=== PATIENT | female | born 1955 | race Caucasian/White ===

== ENCOUNTER 2016-10-18 12:16 | Emergency (ER) | payer MEDICARE, MEDICAID ==
[2016-10-18] MEDS ORDERED: NS 0.9% 1000 ML* 1,000 ML IV SCH (13:30)
[2016-10-18 13:38] LABS: Hematocrit 38 % (35-47); Hemoglobin 12.4 g/dl (12.0-16.0); Mean Corpuscular HGB Conc 33 g/dl (31-36); Mean Corpuscular Hemoglobin 29 pg (27-31); Mean Corpuscular Volume 88 fL (80-97); Mean Platelet Volume 8 um3 (7.4-10.4); Red Blood Count 4.29 10^6/ul (4.0-5.4); Red Cell Distribution Width 16 % (10.5-15); White Blood Count 11.2 10^3/ul (3.5-10.8)
[2016-10-18 13:50] LABS: Albumin 3.5 g/dL (3.2-5.2); BUN/Creatinine Ratio 24.1 (8-20); C Reactive Protein 4.53 mg/L (< 5.00); Calcium 8.9 mg/dL (8.6-10.3); EGFR African American 94.5 (>60); EGFR Non-African American 73.5 (>60); Globulin 3.4 g/dL (2-4); Magnesium 1.8 mg/dL (1.9-2.7); Potassium 3.8 mmol/L (3.5-5.0); Total Bilirubin 0.3 mg/dL (0.2-1.0); Total Protein 6.9 g/dL (6.4-8.9)
[2016-10-18 14:04] LABS: TSH (Thyroid Stimulating Horm) 0.33 mcIU/mL (0.34-5.60)
--- NOTE | 2016-10-18 14:06 | RAD ---
HISTORY: Epigastric pain COMPARISONS: May 09, 2014 VIEWS:1: Single frontal portable view of the chest at 1:35 PM FINDINGS: LINES AND TUBES: None. CARDIOMEDIASTINAL SILHOUETTE: The cardiomediastinal silhouette is normal for portable technique. PLEURA: The costophrenic angles are sharp. No pleural abnormalities are noted. LUNG PARENCHYMA: There is alveolar opacification of the right lung apex. ABDOMEN: The upper abdomen is clear. There is no subphrenic gas. BONES AND SOFT TISSUES: No bone or soft tissue abnormalities are noted. IMPRESSION: RIGHT UPPER LOBE CONSOLIDATIVE CHANGES. RECOMMEND FOLLOW-UP UNTIL RESOLUTION TO EXCLUDE UNDERLYING PULMONARY PARENCHYMAL PATHOLOGY. IF THE CLINICAL PRESENTATION IS NOT CONSISTENT WITH PNEUMONIA, CONSIDER FURTHER EVALUATION WITH CROSS-SECTIONAL IMAGING OF THE CHEST
[2016-10-18 14:36] LABS: Urine Bacteria Absent (Absent); Urine Bilirubin Negative (Negative); Urine Glucose 3+(>=500 mg/dL) (Negative); Urine Nitrite Negative (Negative)
[2016-10-18] MEDS ORDERED: Famotidine TAB* 20 MG PO ONE (15:07)
[2016-10-18] MEDS ORDERED: Lidocaine 2% VISCOUS* 15 ML UDC ONE (15:13)
--- NOTE | 2016-10-18 15:18 | ED ---
Fanta Aaron Anna, scribed for Alber Theodore MD on 10/18/16 at 1402 . HPI Chest Pain - HPI Summary HPI Summary: Patient is a 61 y/o female coming to [facility] presenting with the sudden onset of intermittent, mid-sternal pressure that began at 1045 this morning. At the onset of the pain, she was not exerting herself. The pain lasted for seconds at a time. At its worst, the pain as 8/10. She additionally had SOB and felt a sharp pain in her right arm for a few seconds. The pain was spontaneously resolved and is not currently present. Denies abd pain, nausea, diaphoresis, leg pain. She was given NTG [employer] in the ambulance, which seemed to alleviate the symptoms at first, though they returned while still in the ambulance. Nothing exacerbates the symptoms. She has had a cough recently. She has a mass in her lung with no evidence of CA per a recent biopsy. She had similar pain a while ago and was given a GI cocktail. She had a stress test more than a year ago with no unusual findings. She denies a history of HLD, HTN. She takes Sporeva, Methamizole, Mylanta, and Lorazepam. She started taking a steroid last night per her oncologist. Her history is significant for lung CA, GERD, COPD. Denies Hx cholecystectomy. She unintentionally lost 12 pounds in the last month. Patient medications have been reviewed this visit. - History of Current Complaint Chief Complaint: EDChestPainROMI Time Seen by Provider: 10/18/16 13:34 Hx Obtained From: Patient Onset/Duration: Resolved Timing: Lasting Seconds Pain Intensity: 8 Pain Scale Used: 0-10 Numeric Chest Pain Location: Mid Sternal Character: Pressure/Squeezing Aggravating Factor(s): Nothing Alleviating Factor(s): NTG 123 - Allergy/Home Medications Allergies/Adverse Reactions: Allergies Allergy/AdvReac Type Severity Reaction Status Date / Time Omeprazole Allergy Unknown Unknown Verified 09/23/15 11:13 Reaction Details Moxifloxacin Allergy Unknown Verified 09/23/15 11:13 Reaction Details SEAFOOD CHOWDER Allergy anaphylaxis Uncoded 09/23/15 11:13 STRAWBERRY SHORTCAKE Allergy anaphylaxis Uncoded 09/23/15 11:13 Home Medications: Home Medications Albuterol HFA INHALER* [Ventolin HFA Inhaler*] 2 puff INH Q4H PRN 10/18/16 [ History Confirmed 10/18/16] Calcium Carbonate-Vitamin D [Calcium 600 + D] 2 tab PO DAILY 10/18/16 [History Confirmed 10/18/16] Naproxen TAB* [Naprosyn 250 mg TAB*] 500 mg PO BID WITH MEALS 10/18/16 [History Confirmed 10/18/16] Tiotropium CAP.INH* [Spiriva CAP.INH*] 1 cap.inh INH DAILY 10/18/16 [History Confirmed 10/18/16] PMH/Surg Hx/FS Hx/Imm Hx Endocrine/Hematology History: Reports: Hx Thyroid Disease - hyperthyroid issues , per pt Cardiovascular History: Reports: Other Cardiovascular Problems/Disorders - rad & chemo for lung CA 2006 Respiratory History: Reports: Hx Chronic Obstructive Pulmonary Disease (COPD), Other Respiratory Problems/Disorders - HX LUNG CX 2006 GI History: Reports: Hx Gastroesophageal Reflux Disease Psychiatric History: Reports: Hx Panic Disorder - Cancer History Cancer Type, Location and Year: lung Hx Chemotherapy: Yes - Surgical History Surgery Procedure, Year, and Place: lung biopsy. attempted lung surgery - to remove tumors/part of lung, but they were unable to remove them d/t the size Infectious Disease History: No Infectious Disease History: Denies: History Other Infectious Disease, Traveled Outside the [place] in Last 30 Days - Family History Known Family History: Positive: Other - hyperthyroidism - Social History Alcohol Use: Rare Substance Use Type: Reports: None Smoking Status (MU): Light Every Day Tobacco Smoker Type: Cigarettes Review of Systems Positive: Chest Pain Positive: Shortness Of Breath Positive: Arthralgia All Other Systems Reviewed And Are Negative: Yes Physical Exam Triage Information Reviewed: Yes Vital Signs On Initial Exam: Initial Vitals Temp Pulse Resp BP Pulse Ox 97 F 53 16 118/70 98 10/18/16 12:41 10/18/16 12:41 10/18/16 12:41 10/18/16 12:41 10/18/16 12:41 Vital Signs Reviewed: Yes Appearance: Positive: Well-Appearing, No Pain Distress Skin: Positive: Warm, Skin Color Reflects Adequate Perfusion, Dry Head/Face: Positive: Normal Head/Face Inspection Eyes: Positive: EOMI, MICHAEL ENT: Positive: Normal ENT inspection Neck: Positive: Supple, Nontender Respiratory/Lung Sounds: Positive: Clear to Auscultation, Breath Sounds Present Cardiovascular: Positive: RRR Abdomen Description: Positive: Nontender, Soft Bowel Sounds: Positive: Present Musculoskeletal: Positive: Normal, Strength/ROM Intact Neurological: Positive: Normal, Sensory/Motor Intact, Alert, Oriented to Person Place, Time Psychiatric: Positive: Anxious - [place] Coma Scale Coma Scale Total: 15 Diagnostics - Vital Signs Vital Signs Temp Pulse Resp BP Pulse Ox 10/18/16 12:48 98 F 57 16 118/70 99 10/18/16 12:41 97 F 53 16 118/70 98 - Laboratory Lab Results: Lab Results 10/18/16 10/18/16 10/18/16 Range/Units 12:37 12:37 12:37 WBC 11.2 H (3.5-10.8) 10^3/ul RBC 4.29 (4.0-5.4) 10^6/ul Hgb 12.4 (12.0-16.0) g/dl Hct 38 (35-47) % MCV 88 (80-97) fL MCH 29 (27-31) pg MCHC 33 (31-36) g/dl RDW 16 H (10.5-15) % Plt Count 379 (150-450) 10^3/ul MPV 8 (7.4-10.4) um3 Neut % (Auto) 88.2 H (38-83) % Lymph % (Auto) 7.9 L (25-47) % Bacon % (Auto) 3.5 (1-9) % Eos % (Auto) 0 (0-6) % Baso % (Auto) 0.4 (0-2) % Absolute Neuts (auto) 9.9 H (1.5-7.7) 10^3/ul Absolute Lymphs (auto) 0.9 L (1.0-4.8) 10^3/ul Absolute Monos (auto) 0.4 (0-0.8) 10^3/ul Absolute Eos (auto) 0 (0-0.6) 10^3/ul Absolute Basos (auto) 0 (0-0.2) 10^3/ul Absolute Nucleated RBC 0.01 10^3/ul Nucleated RBC % 0.1 INR (Anticoag Therapy) 0.89 (0.89-1.11) APTT 27.4 (26.0-36.3) seconds Sodium 133 (133-145) mmol/L Potassium 3.8 (3.5-5.0) mmol/L Chloride 107 (101-111) mmol/L Carbon Dioxide 20 L (22-32) mmol/L Anion Gap 6 (2-11) mmol/L BUN 19 (6-24) mg/dL Creatinine 0.79 (0.51-0.95) mg/dL Est GFR ( Amer) 94.5 (>60) Est GFR (Non-Af Amer) 73.5 (>60) BUN/Creatinine Ratio 24.1 H (8-20) Glucose 245 H (70-100) mg/dL Lactic Acid (0.5-2.0) mmol/L Calcium 8.9 (8.6-10.3) mg/dL Magnesium 1.8 L (1.9-2.7) mg/dL Total Bilirubin 0.30 (0.2-1.0) mg/dL AST 10 L (13-39) U/L ALT 7 (7-52) U/L Alkaline Phosphatase 78 (34-104) U/L Total Creatine Kinase 33 (10-223) U/L CK-MB (CK-2) 1.2 (0.6-6.3) ng/mL Troponin I 0.00 (<0.04) ng/mL C-Reactive Protein 4.53 (< 5.00) mg/L B-Natriuretic Peptide ( - 100) pg/mL Total Protein 6.9 (6.4-8.9) g/dL Albumin 3.5 (3.2-5.2) g/dL Globulin 3.4 (2-4) g/dL Albumin/Globulin Ratio 1.0 (1-3) Lipase 12 (11.0-82.0) U/L TSH Pending 10/18/16 10/18/16 Range/Units 12:37 12:37 WBC (3.5-10.8) 10^3/ul RBC (4.0-5.4) 10^6/ul Hgb (12.0-16.0) g/dl Hct (35-47) % MCV (80-97) fL MCH (27-31) pg MCHC (31-36) g/dl RDW (10.5-15) % Plt Count (150-450) 10^3/ul MPV (7.4-10.4) um3 Neut % (Auto) (38-83) % Lymph % (Auto) (25-47) % Bacon % (Auto) (1-9) % Eos % (Auto) (0-6) % Baso % (Auto) (0-2) % Absolute Neuts (auto) (1.5-7.7) 10^3/ul Absolute Lymphs (auto) (1.0-4.8) 10^3/ul Absolute Monos (auto) (0-0.8) 10^3/ul Absolute Eos (auto) (0-0.6) 10^3/ul Absolute Basos (auto) (0-0.2) 10^3/ul Absolute Nucleated RBC 10^3/ul Nucleated RBC % INR (Anticoag Therapy) (0.89-1.11) APTT (26.0-36.3) seconds Sodium (133-145) mmol/L Potassium (3.5-5.0) mmol/L Chloride (101-111) mmol/L Carbon Dioxide (22-32) mmol/L Anion Gap (2-11) mmol/L BUN (6-24) mg/dL Creatinine (0.51-0.95) mg/dL Est GFR ( Amer) (>60) Est GFR (Non-Af Amer) (>60) BUN/Creatinine Ratio (8-20) Glucose (70-100) mg/dL Lactic Acid 1.8 (0.5-2.0) mmol/L Calcium (8.6-10.3) mg/dL Magnesium (1.9-2.7) mg/dL Total Bilirubin (0.2-1.0) mg/dL AST (13-39) U/L ALT (7-52) U/L Alkaline Phosphatase (34-104) U/L Total Creatine Kinase (10-223) U/L CK-MB (CK-2) (0.6-6.3) ng/mL Troponin I (<0.04) ng/mL C-Reactive Protein (< 5.00) mg/L B-Natriuretic Peptide 31 ( - 100) pg/mL Total Protein (6.4-8.9) g/dL Albumin (3.2-5.2) g/dL Globulin (2-4) g/dL Albumin/Globulin Ratio (1-3) Lipase (11.0-82.0) U/L TSH Result Diagrams: 10/18/16 12:37 10/18/16 12:37 Lab Statement: Any lab studies that have been ordered have been reviewed, and results considered in the medical decision making process. - Radiology CXR Xray Interpretation: Positive (See Comments) Radiology Interpretation Completed By: Radiologist - IMPRESSION: RIGHT UPPER LOBE CONSOLIDATIVE CHANGES. RECOMMEND FOLLOW-UP UNTIL RESOLUTION TO EXCLUDE UNDERLYING PULMONARY PARENCHYMAL PATHOLOGY. IF THE CLINICAL PRESENTATION IS NOT CONSISTENT WITH PNEUMONIA, CONSIDER FURTHER EVALUATION WITH CROSS-SECTIONAL IMAGING OF THE CHEST - EKG 1324 Cardiac Rate: Bradycardia - 58 bpm EKG Rhythm: Sinus Bradycardia ST Segment: Normal Ectopy: None Chest Pain Course/Dx - Course Course Of Treatment: NO CRITICAL CARE TIME Assessment/Plan: ADMIT HOSPITALIST STABLE - Diagnoses Provider Diagnoses: CHEST PAIN - Provider Notifications Discussed Care Of Patient With: Mohan Andrade (Hospitalist PA) at 1411. Dr. Sheikh (Hospitalist) at 1416. Agrees to accept patient for admission. Discharge - Discharge Plan Condition: Stable Disposition: ADMITTED TO [facility] Prescriptions: Famotidine [Pepcid] 20 mg PO BID #60 tab Referrals: Yassine Shirley MD [Primary Care Provider] - The documentation as recorded by the Fanta macias Anna accurately reflects the service I personally performed and the decisions made by me, Alber Theodore MD.
--- NOTE | 2016-10-18 15:20 | CONSULT ---
Subjective Date of Service: 10/18/16 Interval History: Allergies Allergy/AdvReac Type Severity Reaction Status Date / Time Omeprazole Allergy Unknown Unknown Verified 09/23/15 11:13 Reaction Details Moxifloxacin Allergy Unknown Verified 09/23/15 11:13 Reaction Details SEAFOOD CHOWDER Allergy anaphylaxis Uncoded 09/23/15 11:13 STRAWBERRY SHORTCAKE Allergy anaphylaxis Uncoded 09/23/15 11:13 Omeprazole: high BP Moxifloxacin: high heart rate Buproprion: suicidal Home Medications Medication Instructions Recorded Confirmed Type Al Hydrox/Mg Hydrox/Simet* 15 ml PO Q4HR PRN 04/25/12 10/18/16 History [Mylanta*] LORazepam TAB(*) [Ativan TAB(*)] 0.5 - 1 mg PO BEDTIME PRN 04/25/12 10/18/16 History Methimazole TAB* [Tapazole TAB*] 5 mg PO TID 04/25/12 10/18/16 History Albuterol HFA INHALER* [Ventolin 2 puff INH Q4H PRN 10/18/16 10/18/16 History HFA Inhaler*] Calcium Carbonate-Vitamin D 2 tab PO DAILY 10/18/16 10/18/16 History [Calcium 600 + D] Famotidine [Pepcid] 20 mg PO BID #60 tab 10/18/16 Rx Naproxen TAB* [Naprosyn 250 mg 500 mg PO BID WITH MEALS 10/18/16 10/18/16 History TAB*] Tiotropium CAP.INH* [Spiriva 1 cap.inh INH DAILY 10/18/16 10/18/16 History CAP.INH*] HPI: The patient was in her usual state of health until about a month ago. She developed gastroenteritis with diarrhea. This eventually resolved but she lost 12 pounds. She was found to have a new right lung mass and had a biopsy about a week ago. The mass was active on PET scan, buth the bx was negative for malignancy. She was prescribed a tapering pack of steroid pills whcih she started last night. She did not take any medication yet today. She developed sharp epigastric pain about 10 AM today. She has had several attacks lasting up to 10 minutes today. She states she has GERD and requests a GI cocktail. Family History: Findings - Melanoma, heart disease Social History: Findings - , lives alone. 4 children, 1 of DKA. Smoker. No alcohol abuse SDM is daughter Lizeth Thompson. Past Medical History: Findings - Lung ca finished tx with RT/chemo 2007. Exploratory R thoracotomy, unresectable tumors. BTL. Port insertion and removal. Review of Systems - Measurements Intake and Output: Intake and Output Last 24 Hours 10/16/16 10/17/16 10/18/16 10/19/16 06:59 06:59 06:59 06:59 Weight 92 lb - Review of Systems Constitutional Symptoms: Positive: Weight Loss - 12 lbs in past month Dermatology: Positive: Normal HEENT: Positive: Normal Eyes: Positive: Normal Thyroid: Positive: Normal Pulmonary: Positive: Cough, Sputum - Increased cough past week, yellow sputum Cardiology: Positive: Normal Gastroenterology: Positive: Abdominal Pain - pain is epigastric Genital - Urinary: Positive: Normal Musculoskeletal: Negative: Joint Pain, Joint Stiffness, Arthritis, Osteoporosis, Low Back Pain , Sciatica, Joint Deformities, Kyphoscoliosis, Other Endocrinology: Positive: Normal Hematologic/Lymphatic: Negative: Anemia, Easy Brusing, Hx Leukemia, Hx Lymphoma, Use of Anticoagulant, Use of Antiplatelet Drugs, Other Neurology: Positive: Normal Psychiatry: Positive: Normal Allergic/Immunologic: Negative: Hx Anaphylaxis, Hx Angioedema, Hx Environmental, Hx Seasonal, Athsma, Hx HIV, Immunocompromise, Swollen Glands LymphNodes, Other Objective Active Medications: Al Hydrox/Mg Hydrox/Simethicone (Maalox Plus*) 30 ml PO ONCE ONE Stop: 10/18/16 15:31 Sodium Chloride (Ns 0.9% 1000 Ml*) 1,000 mls @ 150 mls/hr IV PER RATE HUDSON Last Admin: 10/18/16 13:43 Dose: 150 mls/hr Lidocaine (Xylocaine 2% Viscous*) 15 ml PO ONCE ONE Stop: 10/18/16 15:31 Vital Signs 10/18/16 10/18/16 10/18/16 12:29 12:32 12:41 Temperature 97 F Pulse Rate 69 63 53 Respiratory 18 20 16 Rate Blood Pressure 118/70 118/70 (mmHg) O2 Sat by Pulse 97 98 98 Oximetry 10/18/16 10/18/16 10/18/16 12:48 13:00 13:30 Temperature 98 F Pulse Rate 57 58 Respiratory 16 Rate Blood Pressure 118/70 125/63 108/58 (mmHg) O2 Sat by Pulse 99 99 Oximetry 10/18/16 10/18/16 14:08 14:52 Temperature Pulse Rate 61 72 Respiratory 16 Rate Blood Pressure 111/65 (mmHg) O2 Sat by Pulse 95 Oximetry Oxygen Devices in Use Now: None Appearance: Alert, sitting on the edge of the bed. Sl anxious, otherwise looks comfortable. Eyes: No Scleral Icterus Ears/Nose/Mouth/Throat: Clear Oropharnyx, Mucous Membranes Moist Neck: NL Appearance and Movements; NL JVP, No Thyroid Enlargement, Masses Respiratory: Symmetrical Chest Expansion and Respiratory Effort, Clear to Auscultation, Clear to Percussion Cardiovascular: NL Sounds; No Murmurs; No JVD, RRR, No Edema, - Abdominal: - - Soft, tender in epigastrium, pressure there reproduces her pain. Nl BS, no mass Extremities: No Edema, No Clubbing, Cyanosis, - Skin: No Rash or Ulcers, No Nodules or Sclerosis, - Neurological: Alert and Oriented x 3, NL Sensation Result Diagrams: 10/18/16 12:37 10/18/16 12:37 Additional Lab and Data: Lab Results 10/18/16 10/18/16 10/18/16 Range/Units 12:37 12:37 12:37 WBC 11.2 H (3.5-10.8) 10^3/ul RBC 4.29 (4.0-5.4) 10^6/ul Hgb 12.4 (12.0-16.0) g/dl Hct 38 (35-47) % MCV 88 (80-97) fL MCH 29 (27-31) pg MCHC 33 (31-36) g/dl RDW 16 H (10.5-15) % Plt Count 379 (150-450) 10^3/ul MPV 8 (7.4-10.4) um3 Neut % (Auto) 88.2 H (38-83) % Lymph % (Auto) 7.9 L (25-47) % Maverick % (Auto) 3.5 (1-9) % Eos % (Auto) 0 (0-6) % Baso % (Auto) 0.4 (0-2) % Absolute Neuts (auto) 9.9 H (1.5-7.7) 10^3/ul Absolute Lymphs (auto) 0.9 L (1.0-4.8) 10^3/ul Absolute Monos (auto) 0.4 (0-0.8) 10^3/ul Absolute Eos (auto) 0 (0-0.6) 10^3/ul Absolute Basos (auto) 0 (0-0.2) 10^3/ul Absolute Nucleated RBC 0.01 10^3/ul Nucleated RBC % 0.1 INR (Anticoag Therapy) 0.89 (0.89-1.11) APTT 27.4 (26.0-36.3) seconds Sodium 133 (133-145) mmol/L Potassium 3.8 (3.5-5.0) mmol/L Chloride 107 (101-111) mmol/L Carbon Dioxide 20 L (22-32) mmol/L Anion Gap 6 (2-11) mmol/L BUN 19 (6-24) mg/dL Creatinine 0.79 (0.51-0.95) mg/dL Est GFR ( Amer) 94.5 (>60) Est GFR (Non-Af Amer) 73.5 (>60) BUN/Creatinine Ratio 24.1 H (8-20) Glucose 245 H (70-100) mg/dL Lactic Acid (0.5-2.0) mmol/L Calcium 8.9 (8.6-10.3) mg/dL Magnesium 1.8 L (1.9-2.7) mg/dL Total Bilirubin 0.30 (0.2-1.0) mg/dL AST 10 L (13-39) U/L ALT 7 (7-52) U/L Alkaline Phosphatase 78 (34-104) U/L Total Creatine Kinase 33 (10-223) U/L CK-MB (CK-2) 1.2 (0.6-6.3) ng/mL Troponin I 0.00 (<0.04) ng/mL C-Reactive Protein 4.53 (< 5.00) mg/L B-Natriuretic Peptide ( - 100) pg/mL Total Protein 6.9 (6.4-8.9) g/dL Albumin 3.5 (3.2-5.2) g/dL Globulin 3.4 (2-4) g/dL Albumin/Globulin Ratio 1.0 (1-3) Lipase 12 (11.0-82.0) U/L TSH Pending 10/18/16 10/18/16 Range/Units 12:37 12:37 WBC (3.5-10.8) 10^3/ul RBC (4.0-5.4) 10^6/ul Hgb (12.0-16.0) g/dl Hct (35-47) % MCV (80-97) fL MCH (27-31) pg MCHC (31-36) g/dl RDW (10.5-15) % Plt Count (150-450) 10^3/ul MPV (7.4-10.4) um3 Neut % (Auto) (38-83) % Lymph % (Auto) (25-47) % Maverick % (Auto) (1-9) % Eos % (Auto) (0-6) % Baso % (Auto) (0-2) % Absolute Neuts (auto) (1.5-7.7) 10^3/ul Absolute Lymphs (auto) (1.0-4.8) 10^3/ul Absolute Monos (auto) (0-0.8) 10^3/ul Absolute Eos (auto) (0-0.6) 10^3/ul Absolute Basos (auto) (0-0.2) 10^3/ul Absolute Nucleated RBC 10^3/ul Nucleated RBC % INR (Anticoag Therapy) (0.89-1.11) APTT (26.0-36.3) seconds Sodium (133-145) mmol/L Potassium (3.5-5.0) mmol/L Chloride (101-111) mmol/L Carbon Dioxide (22-32) mmol/L Anion Gap (2-11) mmol/L BUN (6-24) mg/dL Creatinine (0.51-0.95) mg/dL Est GFR ( Amer) (>60) Est GFR (Non-Af Amer) (>60) BUN/Creatinine Ratio (8-20) Glucose (70-100) mg/dL Lactic Acid 1.8 (0.5-2.0) mmol/L Calcium (8.6-10.3) mg/dL Magnesium (1.9-2.7) mg/dL Total Bilirubin (0.2-1.0) mg/dL AST (13-39) U/L ALT (7-52) U/L Alkaline Phosphatase (34-104) U/L Total Creatine Kinase (10-223) U/L CK-MB (CK-2) (0.6-6.3) ng/mL Troponin I (<0.04) ng/mL C-Reactive Protein (< 5.00) mg/L B-Natriuretic Peptide 31 ( - 100) pg/mL Total Protein (6.4-8.9) g/dL Albumin (3.2-5.2) g/dL Globulin (2-4) g/dL Albumin/Globulin Ratio (1-3) Lipase (11.0-82.0) U/L TSH Assessment/Plan - Billing Plan By Medical Problem: 1. Epigastric pain. Clinically this is GI pain. Pt requests by name a GI cocktail. Maalox with lidocaine given, also 1 dose of famotidine 20 mg and rx for famotidine 20 mg bid transmitted. Second troponin will be checked before discharge. 2. Tobacco use. Pt advised to quit smoking and avoid second hand smoke. 3. Lung mass. Fup with her oncologist. Complete steroid as prescribed. 4. Hyperthyroidism. TSH sl low, may need re-eval of her endocrine tx. 5. COPD . Continue tiotropium.
[2016-10-18] MEDS ORDERED: Al Hydrox/Mg Hydrox/Simet LIQ* 30 ML UDC PO ONE (15:30)
[2016-10-18] MEDS ORDERED: Lidocaine 2% VISCOUS* 15 ML UDC PO ONE (15:30)
[2016-10-18 16:36] VITALS: BP 126/94
== END 2016-10-18 16:35 | disposition home or self-care (01) ==
LOC: ED 12:16 → MEDTELE 14:35 → UNDOADMOB 14:35 → ED 16:35
DX: R07.9 Chest pain, unspecified (principal); R06.02 Shortness of breath; M25.50 Pain in unspecified joint
CPT/HCPCS: 36415; 71010; 80053; 81003; 81015; 82550; 82553; 83605; 83690; 83735; 83880; 84443; 84484; 85025; 85610; 85730; 86140; 87086; 93005; 99284; A9270-GY

== ENCOUNTER → 2017-05-04 00:40 | Emergency (ER) | payer MEDICARE, MEDICAID ==
[2017-05-04 03:19] LABS: Hematocrit 45 % (35-47); Hemoglobin 15.3 g/dl (12.0-16.0); Mean Corpuscular HGB Conc 34 g/dl (31-36); Mean Corpuscular Hemoglobin 31 pg (27-31); Mean Corpuscular Volume 92 fL (80-97); Mean Platelet Volume 8 um3 (7.4-10.4); Red Blood Count 4.92 10^6/ul (4.0-5.4); Red Cell Distribution Width 14 % (10.5-15); White Blood Count 9.2 10^3/ul (3.5-10.8)
[2017-05-04 03:31] LABS: ALT 10 U/L (7-52); AST 16 U/L (13-39); Alkaline Phosphatase 90 U/L (34-104); Anion Gap 6 mmol/L (2-11); Blood Urea Nitrogen 19 mg/dL (6-24); CO2 Carbon Dioxide 23 mmol/L (22-32); Calcium 9.2 mg/dL (8.6-10.3); Chloride 106 mmol/L (101-111); EGFR African American 76.4 (>60); EGFR Non-African American 59.4 (>60); Globulin 2.9 g/dL (2-4); Glucose 115 mg/dL (70-100); Lipase 22 U/L (11.0-82.0); Magnesium 2.1 mg/dL (1.9-2.7); Potassium 3.8 mmol/L (3.5-5.0); Sodium 135 mmol/L (133-145); Total Protein 6.9 g/dL (6.4-8.9)
[2017-05-04 04:16] LABS: Troponin I 0.01 ng/mL (<0.04)
[2017-05-04 04:25] LABS: T4 7.64 mcg/mL (6.09-12.23)
[2017-05-04 06:14] VITALS: BP 92/55
[2017-05-04 06:56] LABS: Urine Bilirubin Negative (Negative); Urine Glucose Negative (Negative); Urine Nitrite Negative (Negative)
--- NOTE | 2017-05-04 07:27 | ED ---
Trudy Aaron Alfonso, scribed for Louie Herrera MD on 05/04/17 at 0203 . HPI Chest Pain - HPI Summary HPI Summary: This patient is a 61 year old F BIBA to [facility] with a chief complaint of chest pressure which began at rest at 2100. 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 The patient rates the pain 6/10 in severity. Symptoms aggravated by movement. Symptoms alleviated by nothing. Patient reports nausea, SOB, numbness tingling on left side of face (resolved), one palpitation my heart pushed out once but no pressure, left shoulder pain, loss of focus, and occipital headache (since yesterday). Patient denies vomiting and arm pain. - History of Current Complaint Chief Complaint: EDAbdPain Pain Intensity: 6 Pain Scale Used: 0-10 Numeric Character: Pressure/Squeezing Aggravating Factor(s): Movement Alleviating Factor(s): Nothing Associated Signs and Symptoms: Positive: Other: - nausea, SOB, numbness tingling on left side of face (resolved), one palpitation my heart pushed out once but no pressure, left shoulder pain, loss of focus, and occipital headache (since yesterday). Patient denies vomiting and arm pain. - Allergy/Home Medications Allergies/Adverse Reactions: Allergies Allergy/AdvReac Type Severity Reaction Status Date / Time Omeprazole Allergy Unknown Unknown Verified 05/04/17 00:43 Reaction Details Moxifloxacin Allergy Unknown Verified 05/04/17 00:43 Reaction Details SEAFOOD CHOWDER Allergy anaphylaxis Uncoded 05/04/17 00:43 STRAWBERRY SHORTCAKE Allergy anaphylaxis Uncoded 05/04/17 00:43 PMH/Surg Hx/FS Hx/Imm Hx Endocrine/Hematology History: Reports: Hx Thyroid Disease - hyperthyroid issues , per pt Cardiovascular History: Reports: Hx Myocardial Infarction, Other Cardiovascular Problems/Disorders - rad & chemo for lung CA 2006 Respiratory History: Reports: Hx Chronic Obstructive Pulmonary Disease (COPD), Other Respiratory Problems/Disorders - HX LUNG CX 2006 GI History: Reports: Hx Gastroesophageal Reflux Disease Musculoskeletal History: Denies: Hx Arthritis, Hx Osteoporosis Psychiatric History: Reports: Hx Panic Disorder - Cancer History Cancer Type, Location and Year: lung Hx Chemotherapy: Yes - last in august 2007 - Surgical History Surgery Procedure, Year, and Place: lung biopsy. attempted lung surgery - to remove tumors/part of lung, but they were unable to remove them d/t the size - Immunization History Date of Tetanus Vaccine: unk Date of Influenza Vaccine: none Infectious Disease History: No Infectious Disease History: Denies: History Other Infectious Disease, Traveled Outside the [place] in Last 30 Days - Family History Known Family History: Positive: Other - hyperthyroidism - Social History Alcohol Use: Occasionally Hx Substance Use: No Substance Use Type: Reports: None Hx Tobacco Use: Yes Smoking Status (MU): Heavy Every Day Tobacco Smoker Type: Cigarettes Review of Systems Positive: Chest Pain Positive: Shortness Of Breath Positive: Nausea Positive: Numbness - numbness tingling on left side of face (resolved) All Other Systems Reviewed And Are Negative: Yes Physical Exam - Summary Physical Exam Summary: Appearance: Well-appearing, Well-nourished Sin: Warm Eyes: Minimal scleral icterus, PERRL, EOMI ENT: Normal Neck: Supple, nontender Respiratory: Clear to auscultation Cardiovascular: Normal, Good pulses in all 4 extremities Abdomen: Soft, nontender Bowel: Present Musculoskeletal: Normal, Strength/ROM Intact, Normal movement of all extremity, Wadley negative, No pronator drift Neurological: Normal, A&Ox3, Cranial nerves II-XII intact. Psychiatric: Normal Triage Information Reviewed: Yes Vital Signs On Initial Exam: Initial Vitals Temp Pulse Resp BP Pulse Ox 98.4 F 66 16 112/64 95 05/04/17 00:41 05/04/17 00:41 05/04/17 00:41 05/04/17 00:41 05/04/17 00:41 Vital Signs Reviewed: Yes - Bala Coma Scale Coma Scale Total: 15 Diagnostics - Vital Signs Vital Signs Temp Pulse Resp BP Pulse Ox 05/04/17 00:41 98.4 F 66 16 112/64 95 - Laboratory Lab Results: Lab Results 05/04/17 05/04/17 05/04/17 Range/Units 03:00 03:00 03:00 WBC 9.2 (3.5-10.8) 10^3/ul RBC 4.92 (4.0-5.4) 10^6/ul Hgb 15.3 (12.0-16.0) g/dl Hct 45 (35-47) % MCV 92 (80-97) fL MCH 31 (27-31) pg MCHC 34 (31-36) g/dl RDW 14 (10.5-15) % Plt Count 311 (150-450) 10^3/ul MPV 8 (7.4-10.4) um3 Neut % (Auto) 66.9 (38-83) % Lymph % (Auto) 24.8 L (25-47) % [place] % (Auto) 6.3 (1-9) % Eos % (Auto) 1.1 (0-6) % Baso % (Auto) 0.9 (0-2) % Absolute Neuts (auto) 6.1 (1.5-7.7) 10^3/ul Absolute Lymphs (auto) 2.3 (1.0-4.8) 10^3/ul Absolute Monos (auto) 0.6 (0-0.8) 10^3/ul Absolute Eos (auto) 0.1 (0-0.6) 10^3/ul Absolute Basos (auto) 0.1 (0-0.2) 10^3/ul Absolute Nucleated RBC 0 10^3/ul Nucleated RBC % 0 INR (Anticoag Therapy) 0.78 L (0.89-1.11) APTT 30.2 (26.0-36.3) seconds Sodium 135 (133-145) mmol/L Potassium 3.8 (3.5-5.0) mmol/L Chloride 106 (101-111) mmol/L Carbon Dioxide 23 (22-32) mmol/L Anion Gap 6 (2-11) mmol/L BUN 19 (6-24) mg/dL Creatinine 0.95 (0.51-0.95) mg/dL Est GFR ( Amer) 76.4 (>60) Est GFR (Non-Af Amer) 59.4 (>60) BUN/Creatinine Ratio 20.0 (8-20) Glucose 115 H (70-100) mg/dL Calcium 9.2 (8.6-10.3) mg/dL Magnesium 2.1 (1.9-2.7) mg/dL Total Bilirubin 0.30 (0.2-1.0) mg/dL Direct Bilirubin 0.00 L (0.03-0.18) mg/dL Indirect Bilirubin Pier Worker AST 16 (13-39) U/L ALT 10 (7-52) U/L Alkaline Phosphatase 90 (34-104) U/L Troponin I 0.01 (<0.04) ng/mL Total Protein 6.9 (6.4-8.9) g/dL Albumin 4.0 (3.2-5.2) g/dL Globulin 2.9 (2-4) g/dL Albumin/Globulin Ratio 1.4 (1-3) Lipase 22 (11.0-82.0) U/L TSH 1.30 (0.34-5.60) mcIU/mL Thyroxine (T4) 7.64 (6.09-12.23) mcg/mL Urine Color Urine Appearance Urine pH (5-9) Ur Specific G[place]ad (1.010-1.030) Urine Protein (Negative) Urine Ketones (Negative) Urine Blood (Negative) Urine Nitrate (Negative) Urine Bilirubin (Negative) Urine Urobilinogen (Negative) Ur Leukocyte Esterase (Negative) Urine Glucose (Negative) Urine Ascorbic Acid (Negative) 05/04/17 05/04/17 Range/Units 05:55 06:25 WBC (3.5-10.8) 10^3/ul RBC (4.0-5.4) 10^6/ul Hgb (12.0-16.0) g/dl Hct (35-47) % MCV (80-97) fL MCH (27-31) pg MCHC (31-36) g/dl RDW (10.5-15) % Plt Count (150-450) 10^3/ul MPV (7.4-10.4) um3 Neut % (Auto) (38-83) % Lymph % (Auto) (25-47) % [place] % (Auto) (1-9) % Eos % (Auto) (0-6) % Baso % (Auto) (0-2) % Absolute Neuts (auto) (1.5-7.7) 10^3/ul Absolute Lymphs (auto) (1.0-4.8) 10^3/ul Absolute Monos (auto) (0-0.8) 10^3/ul Absolute Eos (auto) (0-0.6) 10^3/ul Absolute Basos (auto) (0-0.2) 10^3/ul Absolute Nucleated RBC 10^3/ul Nucleated RBC % INR (Anticoag Therapy) (0.89-1.11) APTT (26.0-36.3) seconds Sodium (133-145) mmol/L Potassium (3.5-5.0) mmol/L Chloride (101-111) mmol/L Carbon Dioxide (22-32) mmol/L Anion Gap (2-11) mmol/L BUN (6-24) mg/dL Creatinine (0.51-0.95) mg/dL Est GFR ( Amer) (>60) Est GFR (Non-Af Amer) (>60) BUN/Creatinine Ratio (8-20) Glucose (70-100) mg/dL Calcium (8.6-10.3) mg/dL Magnesium (1.9-2.7) mg/dL Total Bilirubin (0.2-1.0) mg/dL Direct Bilirubin (0.03-0.18) mg/dL Indirect Bilirubin AST (13-39) U/L ALT (7-52) U/L Alkaline Phosphatase (34-104) U/L Troponin I 0.01 (<0.04) ng/mL Total Protein (6.4-8.9) g/dL Albumin (3.2-5.2) g/dL Globulin (2-4) g/dL Albumin/Globulin Ratio (1-3) Lipase (11.0-82.0) U/L TSH (0.34-5.60) mcIU/mL Thyroxine (T4) (6.09-12.23) mcg/mL Urine Color Yellow Urine Appearance Clear Urine pH 6.0 (5-9) Ur Specific G[place] 1.018 (1.010-1.030) Urine Protein Negative (Negative) Urine Ketones Negative (Negative) Urine Blood Negative (Negative) Urine Nitrate Negative (Negative) Urine Bilirubin Negative (Negative) Urine Urobilinogen Negative (Negative) Ur Leukocyte Esterase Negative (Negative) Urine Glucose Negative (Negative) Urine Ascorbic Acid * H (Negative) Result Diagrams: 05/04/17 03:00 05/04/17 03:00 Lab Statement: Any lab studies that have been ordered have been reviewed, and results considered in the medical decision making process. - Radiology CXR Radiology Interpretation Completed By: ED Physician - Bilateral haziness of bases. Flattening of the diaphragm. No obvious acute consolidation., Radiologist - Pending official interpretation from radiologist. See meditech. - CT Brain CT Interpretation Completed By: Radiologist - No acute intracranial hemorrhage mass effect or midline shift. No evidence of large territory of subacute stroke. Cannot exclude a small acute stroke. If there is clinical concern for a small acute stroke then followup evaluation with MRI of the bran may be needed. ED physician has reviewed this radiology report and agrees. - EKG 0617 Cardiac Rate: Bradycardia EKG Rhythm: Sinus Bradycardia - BPM 55 EKG Interpretation: NAC Re-Evaluation - Re-Evaluation First Eval Re-Evaluation Time: 07:25 - improved after course in ED, requests discharge Change: Improved Chest Pain Course/Dx - Course Assessment/Plan: pt's pain improved, head CT and trop negative, no acute changes on cxr. No acute ischemic changes on ekg, labs WNL. Pt requests dc at this time becuas she feels well, I instructed pt to fu with GI physician for further workup .agrees to and understnads dc instructions . - Diagnoses Provider Diagnoses: Abdominal pain Discharge - Discharge Plan Condition: Improved Disposition: HOME Patient Education Materials: Abdominal Pain (ED) Referrals: Yassine Shirley MD [Primary Care Provider] - Cj Morgan MD [Medical Doctor] - Additional Instructions: PLEASE MAKE AN APPOINTMENT FIRST THING IN THE MORNING TO BE SEEN BY A GI DOCTOR WITHIN 1 WEEK PLEASE RETURN TO THE EMERGENCY ROOM IF YOU HAVE ANY WORSENING OR CONCERNING SYMPTOMS The documentation as recorded by the Trudy macias Alfonso accurately reflects the service I personally performed and the decisions made by me, Louie Herrera MD.
--- NOTE | 2017-05-04 10:13 | RAD ---
INDICATION: Abdominal pain COMPARISON: None. TECHNIQUE: Single AP portable view of the chest was obtained. FINDINGS: Image quality is compromised due to the relative inferiority of a portable chest x-ray. The heart and mediastinum exhibit normal size and contour. Again noted are surgical clips overlying the right of midline upper mediastinum. The lungs are grossly clear. There is no evidence of a large pleural effusion. Visualized bones are normal for the patient's age. IMPRESSION: No radiographic evidence for acute cardiopulmonary abnormality on this portable chest x-ray.
--- NOTE | 2017-05-04 13:00 | RAD ---
INDICATION: Headache and left facial numbness COMPARISON: None. TECHNIQUE: Contiguous axial sections of the brain were obtained from the skull base to the vertex without contrast. FINDINGS: The ventricles, cisterns and sulci are within normal limits. The cedeno-white matter differentiation is adequately maintained and there is no sulcal effacement. No significant focal abnormality or mass effect is present. There is no evidence for intracranial hemorrhage. No significant focal osseous abnormality is present. The visualized portion of the paranasal sinuses and mastoid air cells appear clear. IMPRESSION: Normal CT of the brain.
== END | disposition home or self-care (01) ==
LOC: ED 00:40
DX: R10.9 Unspecified abdominal pain (principal); R06.02 Shortness of breath; R07.9 Chest pain, unspecified; R11.0 Nausea; I25.2 Old myocardial infarction; F17.210 Nicotine dependence, cigarettes, uncomplicated; Z87.09 Personal history of other diseases of the respiratory system
CPT/HCPCS: 36415; 70450; 71010; 80053; 80076; 81003; 83690; 83735; 84436; 84443; 84484; 85025; 85610; 85730; 93005; 99282

== ENCOUNTER 2018-01-20 01:12 | Emergency (ER) | payer MEDICARE, MEDICAID ==
[2018-01-20] MEDS ORDERED: Pantoprazole IV* 40 MG IV ONE (01:46)
[2018-01-20] MEDS ORDERED: NS 0.9% 1000 ML* 1,000 ML IV ONE (01:46)
--- NOTE | 2018-01-20 01:53 | ED ---
Abdominal Pain/Female - HPI Summary HPI Summary: This is gilberto Banks documenting for Dr. Kristina Richard MD. Pt is 62 y/o F who presents to ED c/o abdominal pain that began at 23:15 this evening. When the symptom started it wasnt pain, it felt like something was radiating over her breastbone. But then it moved lower and became a throbbing pain. Notes nausea and difficulty breathing. Denies burping, back pain, or vomiting. PMHx of lung cancer in 2006 but has been in remission since 2007. She had radiation therapy back in 2006 and is going to begin immunotherapy. Denies PSHx of hysterectomy, appendectomy, or cholecystectomy. - History of Current Complaint Chief Complaint: EDAbdPain Stated Complaint: ABD PAIN Time Seen by Provider: 01/20/18 01:15 Hx Obtained From: Patient Onset/Duration: Lasting Hours Radiates: Yes Character: Other: - Throbbing Associated Signs and Symptoms: Positive: Nausea, Other: - difficulty breathing. Negative: Back Pain, Vomiting Allergies/Adverse Reactions: Allergies Allergy/AdvReac Type Severity Reaction Status Date / Time MS Omeprazole [Omeprazole] Allergy Unknown Unknown Verified 05/04/17 00:43 Reaction Details MS Moxifloxacin Allergy Unknown Verified 05/04/17 00:43 [Moxifloxacin] Reaction Details SEAFOOD CHOWDER Allergy anaphylaxis Uncoded 05/04/17 00:43 STRAWBERRY SHORTCAKE Allergy anaphylaxis Uncoded 05/04/17 00:43 PMH/Surg Hx/FS Hx/Imm Hx Endocrine/Hematology History: Reports: Hx Thyroid Disease - hyperthyroid issues , per pt Cardiovascular History: Reports: Hx Myocardial Infarction, Other Cardiovascular Problems/Disorders - rad & chemo for lung CA 2006 Respiratory History: Reports: Hx Chronic Obstructive Pulmonary Disease (COPD), Other Respiratory Problems/Disorders - HX LUNG CX 2006 GI History: Reports: Hx Gastroesophageal Reflux Disease Musculoskeletal History: Denies: Hx Arthritis, Hx Osteoporosis Psychiatric History: Reports: Hx Panic Disorder - Cancer History Cancer Type, Location and Year: lung Hx Chemotherapy: Yes - last in august 2007 - Surgical History Surgery Procedure, Year, and Place: lung biopsy. attempted lung surgery - to remove tumors/part of lung, but they were unable to remove them d/t the size - Immunization History Date of Tetanus Vaccine: unk Date of Influenza Vaccine: none Infectious Disease History: No Infectious Disease History: Denies: History Other Infectious Disease, Traveled Outside the [place] in Last 30 Days - Family History Known Family History: Positive: Other - hyperthyroidism - Social History Alcohol Use: Occasionally Hx Substance Use: No Substance Use Type: Reports: None Hx Tobacco Use: Yes Smoking Status (MU): Heavy Every Day Tobacco Smoker Type: Cigarettes Review of Systems Positive: Other - Difficulty breathing Positive: Abdominal Pain, Nausea, Other - NEGATIVE: burping. Negative: Vomiting Positive: Other - NEGATIVE: back pain All Other Systems Reviewed And Are Negative: Yes Physical Exam - Summary Physical Exam Summary: VITAL SIGNS: Reviewed. GENERAL: Patient is a well-developed and nourished female who is lying comfortable in the stretcher. Patient is not in any acute respiratory distress. HEAD AND FACE: No signs of trauma. No ecchymosis, hematomas or skull depressions. No sinus tenderness. EYES: PERRLA, EOMI x 2, No injected conjunctiva, no nystagmus. EARS: Hearing grossly intact. Ear canals and tympanic membranes are within normal limits. MOUTH: Oropharynx within normal limits. NECK: Supple, trachea is midline, no adenopathy, no JVD, no carotid bruit, no c- spine tenderness, neck with full ROM. CHEST: Symmetric, no tenderness at palpation LUNGS: Clear to auscultation bilaterally. No wheezing or crackles. CVS: Regular rate and rhythm, S1 and S2 present, no murmurs or gallops appreciated. ABDOMEN: Soft, point tenderness over left upper mid abdomen. No signs of distention. No rebound no guarding, and no masses palpated. Bowel sounds are normal. EXTREMITIES: FROM in all major joints, no edema, no cyanosis or clubbing. NEURO: Alert and oriented x 3. No acute neurological deficits. Speech is normal and follows commands. SKIN: Dry and warm Triage Information Reviewed: Yes Vital Signs On Initial Exam: Initial Vitals Temp Pulse Resp BP Pulse Ox 98.4 F 65 17 131/71 94 01/20/18 01:27 01/20/18 01:27 01/20/18 01:27 01/20/18 01:27 01/20/18 01:27 Vital Signs Reviewed: Yes Diagnostics - Vital Signs Vital Signs Temp Pulse Resp BP Pulse Ox 01/20/18 01:27 98.4 F 65 17 131/71 94 - Laboratory Result Diagrams: 01/20/18 01:28 08/06/18 01:28 Lab Statement: Any lab studies that have been ordered have been reviewed, and results considered in the medical decision making process. - CT CT Abd/Pel CT Interpretation Completed By: Radiologist - IMPRESSION: 1. In the medial aspect of the right lung abutting the heart is a soft tissue mass. This measures almost 10 cm in oblique length. It has a mixed density. This may represent a neoplasm. 2. Bilateral adrenal nodules. These were seen on the prior CT study of 02/21/2013. Workup and follow up per institutional guidelines. 3. No acute findings. No evidence of bowel obstruction. No mucosal thickening. The gallbladder shows no abnormal distention. No chloelithiasis. ED Physician reviewed this report. - EKG 1:53 Cardiac Rate: NL - 59 bpm EKG Rhythm: Sinus Rhythm EKG Interpretation: Normal axis. Normal interval. No ischemic changes. Re-Evaluation - Re-Evaluation First Eval Re-Evaluation Time: 04:39 - Discussed results with pt and discharge plans. She was told to follow up with her oncologist Dr. Avitia. Pt is agreeable with this plan. Abdominal Pain Fem Course/Dx - Course Course Of Treatment: Pt is 62 y/o F who presents to ED c/o abdominal pain that began at 23:15 this evening. Notes nausea and difficulty breathing. Denies burping, back pain, or vomiting. PMHx of lung cancer in 2006 but has been in remission since 2007. She had radiation therapy back in 2006 and is going to begin immunotherapy. Denies PSHx of hysterectomy, appendectomy, or cholecystectomy. Physical exam revealed point tenderness over left upper mid abdomen. EKG taken at 01:53 shows sinus rhythm at 59 bpm with normal axis, normal interval, and no ischemic changes. CT Abd/Pel showed in the medial aspect of the right lung abutting the heart is a soft tissue mass almost 10 cm in oblique length, bilateral adrenal nodules, and no acute findings. ED Physician reviewed this report and agrees. In the ED course pt was given fluids and Protonix. Pt was diagnosed with abdominal pain and lung cancer and discharged home. She was told to follow up with her oncologist Dr. Avitia and pt is agreeable with this plan. - Diagnoses Provider Diagnoses: Abdominal pain, Lung cancer Discharge - Sign-Out/Discharge Documenting (check all that apply): Patient Departure - Discharge - Discharge Plan Condition: Stable Disposition: HOME Patient Education Materials: Lung Cancer (DC), Acute Abdominal Pain (ED) Referrals: Micheal Avitia MD [Medical Doctor] - 3 Days Additional Instructions: Follow up with oncologist. RETURN TO ED FOR ANY NEW OR WORSENING SYMPTOMS.
[2018-01-20 01:56] LABS: ABS Basophils 0 10^3/ul (0-0.2); ABS Eosinophils 0.1 10^3/ul (0-0.6); ABS Lymphocytes 1.8 10^3/ul (1.0-4.8); ABS Monocytes 0.6 10^3/ul (0-0.8); ABS Neutrophils 6.3 10^3/ul (1.5-7.7); ABS Nucleated RBC 0 10^3/ul; Hematocrit 46 % (35-47); Hemoglobin 15.6 g/dl (12.0-16.0); Lymphocyte % 20.2 % (25-47); Mean Corpuscular HGB Conc 34 g/dl (31-36); Mean Corpuscular Hemoglobin 31 pg (27-31); Mean Corpuscular Volume 92 fL (80-97); Mean Platelet Volume 7.9 um3 (7.4-10.4); Nucleated Red Blood Cells % 0; Platelet Count 289 10^3/ul (150-450); Red Blood Count 4.97 10^6/ul (4.00-5.40); Red Cell Distribution Width 14 % (10.5-15); White Blood Count 8.7 10^3/ul (3.5-10.8)
[2018-01-20 02:03] LABS: INR 0.82 (0.77-1.02)
[2018-01-20 03:00] LABS: Urine Appearance Clear; Urine Blood Negative (Negative); Urine Color Straw; Urine Ketones Negative (Negative); Urine Protein Negative (Negative); Urine Specific Gravity 1.005 (1.010-1.030); Urine Urobilinogen Negative (Negative)
[2018-01-20] MEDS ORDERED: Iodixanol* (CONTRAST) 320 MG/ML 100 ML SDV IV ONE (03:14)
[2018-01-20 05:08] VITALS: BP 142/74
--- NOTE | 2018-01-20 08:05 | RAD ---
Indication: Abdominal pain. Contrast: Administered 51.2 ml of VISIPAQUE 320 mg/ml CT of the abdomen and pelvis was performed after oral and IV contrast administration. Coronal and sagittal reconstructed images were obtained. The lung bases demonstrate soft tissue density in the right medial lower chest incompletely imaged consistent with progression of neoplastic process. On a prior PET/CT this was present and may be slightly increased in size since previous exam. The heart demonstrates no pericardial effusion. No other nodules are noted. The liver is normal in size. There is a low density lesion in the anterior segment right lobe of liver measuring 3 mm. This is nonspecific. Additional inferior tip of the right lobe of liver low density lesion measuring 3 mm is noted. No intrahepatic duct dilatation is noted. The gallbladder demonstrates no calcified gallstones. No pericholecystic fluid or wall thickening is noted. The pancreas demonstrates no mass or parenchymal dislocation. The spleen is normal in size. There is a right adrenal mass measuring up to 1.8 cm. There may be a small 10 mm left adrenal nodule. This is unchanged from prior PET scan. The kidneys demonstrate no hydronephrosis. No retroperitoneal lymphadenopathy is noted. No dilated loops of bowel are noted. CT of the pelvis demonstrates no evidence of appendicitis. Urinary bladder is unremarkable. The bony structures demonstrates no fracture. No evidence of abnormal adenopathy is noted. IMPRESSION: Again noted is a soft tissue mass consistent with the neoplastic process along the medial aspect of the right lower lobe. This was present on prior PET scan dated November 05, 2017 and appears to be slightly larger in size. Nonspecific tiny low density lesions in liver are noted. Bilateral adrenal masses unchanged from prior exam.
== END 2018-01-20 05:07 | disposition home or self-care (01) ==
LOC: ED 01:12
DX: R10.9 Unspecified abdominal pain (principal); C34.91 Malignant neoplasm of unspecified part of right bronchus or lung; E27.9 Disorder of adrenal gland, unspecified; J43.2 Centrilobular emphysema; F17.210 Nicotine dependence, cigarettes, uncomplicated; Z85.118 Personal history of other malignant neoplasm of bronchus and lung; Z92.3 Personal history of irradiation; Z90.710 Acquired absence of both cervix and uterus; Z90.89 Acquired absence of other organs; Z79.899 Other long term (current) drug therapy
CPT/HCPCS: 36415; 74177; 80053; 81003; 82150; 83605; 83690; 83735; 85025; 85610; 85730; 86140; 93005; 96361; 96374; 99283; Q9967

== ENCOUNTER 2018-10-18 13:44 | Emergency (ER) | payer MEDICARE, MEDICAID ==
--- NOTE | 2018-10-18 13:59 | ED ---
GI/ HPI - HPI Summary HPI Summary: This patient is a 63 year old F presenting to ED via EMS with a chief complaint of coughing up blood once this morning. She has never had this happen before. Symptoms aggravated by nothing. Symptoms alleviated by nothing. Patient denies fever, chills, and SOB. She has a history of lung cancer in 2006, recurring recently. Her first chemotherapy treatment and port administration was 06/19/2018 and she has received treatment every three weeks since. PMHx DM, thyroid disease , OK, COPD, lung CA, GERD, panic disorder but no HTN, renal disease. PSHx of lung biopsy and attempted lung surgery to remove tumor. FHx of hyperthyroidism. Patient occasionally drinks alcohol, does not use substances, and is a heavy cigarette smoker. - History of Current Complaint Stated Complaint: COUGHING UP BLOOD PER EMS Hx Obtained From: Patient Onset/Duration: Started Hours Ago - This morning, single episode Associated Signs and Symptoms: Positive: Negative - SOB. Negative: Fever, Chills Aggravating Factor(s): Nothing Alleviating Factor(s): Nothing - Allergy/Home Medications Allergies/Adverse Reactions: Allergies Allergy/AdvReac Type Severity Reaction Status Date / Time bupropion [From Zyban] Allergy Severe Unknown Verified 10/18/18 14:25 Reaction Details moxifloxacin Allergy Severe Palpitation Verified 10/18/18 14:25 s shellfish derived Allergy Severe Anaphylatic Verified 10/18/18 14:25 Shock strawberry Allergy Severe Anaphylatic Verified 10/18/18 14:25 Shock omeprazole Allergy Unknown Verified 10/18/18 14:25 Reaction Details Home Medications: Home Medications Fluconazole 100 MG TAB* [Diflucan 100 MG TAB*] 100 mg PO BID 10/18/18 [History Confirmed 10/18/18] Folic Acid 0.4 mg PO DAILY 10/18/18 [History Confirmed 10/18/18] Metformin HCl 500 mg PO BID 10/18/18 [History Confirmed 10/18/18] Vitamin B Complex [Super B-50 Complex] 1 each PO DAILY 10/18/18 [History Confirmed 10/18/18] glipiZIDE [Glipizide] 5 mg PO SEE INSTRUCTIONS 10/18/18 [History Confirmed 10/18] PMH/Surg Hx/FS Hx/Imm Hx Previously Healthy: No Endocrine/Hematology History: Reports: Hx Diabetes - type 2, Hx Thyroid Disease - hyperthyroid issues, per pt Cardiovascular History: Reports: Hx Myocardial Infarction, Other Cardiovascular Problems/Disorders - rad & chemo for lung CA 2006 Denies: Hx Hypertension Respiratory History: Reports: Hx Chronic Obstructive Pulmonary Disease (COPD), Other Respiratory Problems/Disorders - HX LUNG CX 2006 GI History: Reports: Hx Gastroesophageal Reflux Disease History: Denies: Hx Renal Disease Musculoskeletal History: Denies: Hx Arthritis, Hx Osteoporosis Psychiatric History: Reports: Hx Panic Disorder - Cancer History Cancer Type, Location and Year: lung Hx Chemotherapy: Yes - last in august 2007 - Surgical History Surgery Procedure, Year, and Place: lung biopsy. attempted lung surgery - to remove tumors/part of lung, but they were unable to remove them d/t the size - Immunization History Date of Tetanus Vaccine: unk Date of Influenza Vaccine: none Infectious Disease History: Denies: History Other Infectious Disease - Family History Known Family History: Positive: Other - hyperthyroidism - Social History Alcohol Use: Occasionally Hx Substance Use: No Substance Use Type: Reports: None Hx Tobacco Use: Yes Smoking Status (MU): Heavy Every Day Tobacco Smoker Type: Cigarettes Review of Systems Negative: Fever, Chills Negative: Shortness Of Breath Gastrointestinal: Other - Hemoptysis All Other Systems Reviewed And Are Negative: Yes Physical Exam - Summary Physical Exam Summary: VITAL SIGNS: Reviewed. GENERAL: Patient is a well-developed and nourished female who is lying comfortable in the stretcher. Patient is not in any acute respiratory distress. HEAD AND FACE: No signs of trauma. No ecchymosis, hematomas or skull depressions. No sinus tenderness. EYES: PERRLA, EOMI x 2, No injected conjunctiva, no nystagmus. EARS: Hearing grossly intact. Ear canals and tympanic membranes are within normal limits. MOUTH: Oropharynx within normal limits. NECK: Supple, trachea is midline, no adenopathy, no JVD, no carotid bruit, no c- spine tenderness, neck with full ROM. CHEST: Symmetric, no tenderness at palpation LUNGS: Clear to auscultation bilaterally. No wheezing or crackles. CVS: Regular rate and rhythm, S1 and S2 present, no murmurs or gallops appreciated. ABDOMEN: Soft, non-tender. No signs of distention. No rebound no guarding, and no masses palpated. Bowel sounds are normal. EXTREMITIES: FROM in all major joints, no edema, no cyanosis or clubbing. NEURO: Alert and oriented x 3. No acute neurological deficits. Speech is normal and follows commands. SKIN: Dry and warm Triage Information Reviewed: Yes Vital Signs On Initial Exam: Initial Vitals Temp Pulse Resp BP Pulse Ox 97.9 F 57 19 114/65 94 10/18/18 14:20 10/18/18 14:20 10/18/18 14:20 10/18/18 14:20 10/18/18 14:20 Vital Signs Reviewed: Yes Diagnostics - Laboratory Result Diagrams: 10/18/18 14:01 10/18/18 14:01 Lab Statement: Any lab studies that have been ordered have been reviewed, and results considered in the medical decision making process. - Radiology CXR Radiology Interpretation Completed By: Radiologist Summary of Radiographic Findings: RIGHT MIDDLE AND LOWER LOBE INFILTRATES, UNCHANGED. RECOMMEND FOLLOW-UP CHEST. X-RAYS TO RESOLUTION TO EXCLUDE AN UNDERLYING NEOPLASTIC PROCESS. Dr. Slaughter has reviewed this radiology report. - EKG 1405 Cardiac Rate: Bradycardia - 55 BPM EKG Rhythm: Sinus Bradycardia ST Segment: Normal EKG Comparison: No Significant Change - Similar to previous EKG taken 01/20/2018 Summary of EKG Findings: Sinus bradycardia at 55 BPM, no ST elevations, similar to previous EKG taken 01/20/2018 GIGU Course/Dx - Course Assessment/Plan: This patient is a 63-year-old female who presents to the emergency department with 1 episode of productive cough with blood tinge. Patient reports that shes been having this productive cough for a couple days. Patient has history of lung cancer for which she is taking chemotherapy. Patient denies any chest pain, denies any shortness of breath or has no other complaints. Test results without any significant abnormality except for glucose of 134, and lactid acid 2.5. Chest x-ray impression: Right middle and lower lobe infiltrates. Unchanged. Recommend follow-up chest x-ray to resolution. In the ED course the patient was given Rocephin. She declined azithromycin. I recommended for the patient to get azithromycin, doxycycline oriented Levaquin as an outpatient however the patient reports that the only medication that works for her is amoxicillin. Therefore I will give the patient a prescription for Augmentin 875 mg twice a day for 10 days. The patient will follow up with the primary care physician. I discussed all the findings and test results with the patient. Patient was instructed to return to the emergency room immediately if any of the symptoms return worsens. Plan of care was discussed with the patient and understands and agrees. All questions were answered at patient satisfaction. There were no further complaints or concerns. Lung exam before discharge: CTA B/L. Good air exchange. No wheezing or crackles heard. CVS: S1 and S2 present. No murmurs appreciated. Patient is alert and oriented x 3. Patient is hemodynamically stable. Patient will be discharged home with follow up PCP in the next 2-3 days - Diagnoses Provider Diagnoses: Pneumonia Discharge - Sign-Out/Discharge Documenting (check all that apply): Patient Departure - Discharge Patient Received Moderate/Deep Sedation with Procedure: No - Discharge Plan Condition: Stable Disposition: HOME Prescriptions: Amoxicillin/Clavulanate TAB* [Augmentin TAB 875*] 875 mg PO BID #20 tab Patient Education Materials: Pneumonia (ED) Referrals: Yassine Shirley MD [Primary Care Provider] - 3 Days Additional Instructions: Follow-up with your primary care provider in 3 days. RETURN THE ER FOR CHANGING OR WORSENING SYMPTOMS. - Billing Disposition and Condition Condition: STABLE Disposition: Home - Attestation Statements Document Initiated by Elvis: Yes Documenting Scribe: Yassine Vincent Provider For Whom Elvis is Documenting (Include Credential): Andrew Slaughter MD Scribe Attestation: Yassine Aaron scribed for Andrew Slaughter MD on 10/18/18 at 5551. Scribe Documentation Reviewed: Yes Provider Attestation: The documentation as recorded by the Yassine macias accurately reflects the service I personally performed and the decisions made by Andrew zayas MD Status of Scribe Document: Viewed
[2018-10-18 14:09] LABS: ABS Lymphocytes 1.6 10^3/ul (1.0-4.8); ABS Monocytes 0.7 10^3/ul (0-0.8); ABS Neutrophils 7.4 10^3/ul (1.5-7.7); Eosinophil % 0.3 %; Hematocrit 45 % (35-47); Lymphocyte % 16.3 %; Mean Corpuscular HGB Conc 34 g/dL (31-36); Mean Corpuscular Hemoglobin 33 pg (27-31); Mean Corpuscular Volume 99 fL (80-97); Mean Platelet Volume 7.2 fL (7.4-10.4); Platelet Count 219 10^3/uL (150-450); Red Blood Count 4.49 10^6 /uL (3.70-4.87); Red Cell Distribution Width 16 % (10.5-15); White Blood Count 9.8 10^3/uL (3.5-10.8)
[2018-10-18 14:26] LABS: Albumin 4.3 g/dL (3.2-5.2); Albumin/Globulin Ratio 1.5 (1-3); BUN/Creatinine Ratio 22.9 (8-20); Calcium 10.1 mg/dL (8.6-10.3); EGFR African American 70.6 (>60); EGFR Non-African American 58.3 (>60); Globulin 2.8 g/dL (2-4); Potassium 4.2 mmol/L (3.5-5.0); Total Bilirubin 0.3 mg/dL (0.2-1.0); Total Protein 7.1 g/dL (6.4-8.9); Troponin I 0.01 ng/mL (<0.04)
[2018-10-18 14:28] LABS: Activated Partial Thrombo Time 29.4 seconds (26.0-36.3); INR 0.87 (0.82-1.09)
[2018-10-18] MEDS ORDERED: cefTRIAXone(*) 1 GM in NS 0.9% 50 ML* 50 ML IVPB ONE (15:03)
[2018-10-18] MEDS: Azithromycin TAB* 250 MG PO ONE ×2 (15:19→16:05)
[2018-10-18 17:58] VITALS: BP 100/63
== END 2018-10-18 17:57 | disposition home or self-care (01) ==
LOC: ED 13:44
DX: J18.9 Pneumonia, unspecified organism (principal); R04.2 Hemoptysis; F17.210 Nicotine dependence, cigarettes, uncomplicated; E05.90 Thyrotoxicosis, unspecified without thyrotoxic crisis or storm; E11.9 Type 2 diabetes mellitus without complications; I25.2 Old myocardial infarction; E07.9 Disorder of thyroid, unspecified; Z85.118 Personal history of other malignant neoplasm of bronchus and lung; J44.9 Chronic obstructive pulmonary disease, unspecified; K21.9 Gastro-esophageal reflux disease without esophagitis; Z92.21 Personal history of antineoplastic chemotherapy
CPT/HCPCS: 36415; 71046; 80053; 83605; 84484; 85025; 85610; 85730; 93005; 96365; 96372; 99283; A9270-GY; J0696

== ENCOUNTER 2019-01-15 16:59 | Emergency (ER) | payer MEDICARE, MEDICAID ==
[2019-01-15 17:42] VITALS: BP 113/65
--- NOTE | 2019-01-15 17:47 | UC ---
Ear Complaint HPI - HPI Summary HPI Summary: 63 yo female presents with RIGHT ear pain and popping for the last 3-4 days. She tells me that she is being treated for lung cancer and over the last few days has noticed pain in her right ear when she burps. Ear also feels a little plugged. Denies fever, chills, sinus symptoms, new or worsening cough. - History of Current Complaint Chief Complaint: UCEar Stated Complaint: RT EAR PAIN Time Seen by Provider: 01/15/19 17:47 Hx Obtained From: Patient Onset/Duration: Gradual Onset Severity Initially: Moderate Severity Currently: Moderate Pain Intensity: 5 Pain Scale Used: 0-10 Numeric - Allergies/Home Medications Allergies/Adverse Reactions: Allergies Allergy/AdvReac Type Severity Reaction Status Date / Time bupropion [From Zyban] Allergy Severe Unknown Verified 01/15/19 17:42 Reaction Details moxifloxacin Allergy Severe Palpitation Verified 01/15/19 17:42 s shellfish derived Allergy Severe Anaphylatic Verified 01/15/19 17:42 Shock strawberry Allergy Severe Anaphylatic Verified 01/15/19 17:42 Shock omeprazole Allergy Unknown Verified 01/15/19 17:42 Reaction Details PMH/Surg Hx/FS Hx/Imm Hx - Additional Past Medical History Additional PMH: Lung CA Endocrine History: Diabetes Respiratory History: COPD, Asthma - Surgical History Surgical History: Yes Surgery Procedure, Year, and Place: lung biopsy. attempted lung surgery - to remove tumors/part of lung, but they were unable to remove them d/t the size - Family History Known Family History: Positive: Other - hyperthyroidism - Social History Lives: With Family Alcohol Use: Rare Substance Use Type: None Smoking Status (MU): Light Every Day Tobacco Smoker Type: Cigarettes Review of Systems All Other Systems Reviewed And Are Negative: Yes Constitutional: Positive: Negative Skin: Positive: Negative Eyes: Positive: Negative ENT: Positive: Ear Ache Respiratory: Positive: Negative Cardiovascular: Positive: Negative Neurovascular: Positive: Negative Neurological: Positive: Negative Psychological: Positive: Negative Physical Exam - Summary Physical Exam Summary: GENERAL: NAD. WDWN. No pain distress. SKIN: No rashes, sores, lesions, or open wounds. HEENT: Head: AT/NC Eyes: EOM intact. Conjunctiva clear without inflammation or discharge. Ears: Hearing grossly normal. TMs intact, no bulging, erythema, or edema. RIGHT TM with moderate clear fluid behind Nose: Nasal mucosa pink and moist. NTTP maxillary and frontal sinus. Throat: Posterior oropharynx without exudates, erythema, or tonsillar enlargement. Uvula midline. NECK: Supple. Nontender. No lymphadenopathy. CHEST: No accessory muscle use. Breathing comfortably and in no distress. CV: Pulses intact. Cap refill <2seconds NEURO: Alert. PSYCH: Age appropriate behavior. Triage Information Reviewed: Yes Vital Signs: Initial Vital Signs Temp 99.0 F 01/15/19 17:35 Pulse 65 01/15/19 17:35 Resp 16 01/15/19 17:35 BP 113/65 01/15/19 17:35 Pulse Ox 95 01/15/19 17:35 Vital Signs Reviewed: Yes Ear Complaint Course/Dx - Course Course Of Treatment: Suspect eustacian tube dysfunction/serous otitis media. - Differential Dx/Diagnosis Provider Diagnosis: Serous otitis media Discharge - Sign-Out/Discharge Documenting (check all that apply): Patient Departure All imaging exams completed and their final reports reviewed: No Studies - Discharge Plan Condition: Stable Disposition: HOME Prescriptions: Fluticasone NASAL SPRAY 50MCG* [Flonase NASAL SPRAY 50MCG*] 2 spray BOTH NARES DAILY #1 btl Loratadine [Claritin] 10 mg PO DAILY #30 tab.rapdis Patient Education Materials: Serous Otitis Media (ED) Referrals: Yassine Shirley MD [Primary Care Provider] - Additional Instructions: If you develop a fever, shortness of breath, chest pain, new or worsening symptoms - please call your PCP or go to the ED immediately. - Billing Disposition and Condition Condition: STABLE Disposition: Home
== END 2019-01-15 18:06 | disposition home or self-care (01) ==
LOC: UCEAST 16:59
DX: H65.91 Unspecified nonsuppurative otitis media, right ear (principal); E11.9 Type 2 diabetes mellitus without complications; J44.9 Chronic obstructive pulmonary disease, unspecified; F17.210 Nicotine dependence, cigarettes, uncomplicated; Z85.118 Personal history of other malignant neoplasm of bronchus and lung
CPT/HCPCS: 99212; G0463

== ENCOUNTER 2019-04-23 17:26 | Emergency (ER) | payer MEDICARE, MEDICAID ==
[2019-04-23 18:12] VITALS: BP 110/59
--- NOTE | 2019-04-23 18:38 | UC ---
Eye Complaint HPI - HPI Summary HPI Summary: 63 yo woman, receiving chrmo for lung cancer, with a 2 day hx of swollen upper eyelids associated with increased tearing and mild visual blurring. She has recently seen her opthalmologist, with dx of dry eyes. - History of Current Complaint Chief Complaint: UCEye Stated Complaint: EYE COMPLAINT Time Seen by Provider: 04/23/19 18:33 Hx Obtained From: Patient, Family/Cook Short Order - here with her daughter. Onset/Duration: Gradual Onset, Lasting Days - 2 Timing: Constant Severity Initially: Mild Severity Currently: Moderate Pain Intensity: 0 Location of Injury: Eye Lid (upper) Character: Dull Aggravating Factor(s): Nothing Alleviating Factor(s): Nothing Associated Signs And Symptoms: Positive: Drainage (Clear), Swelling - upper lid swelling. - Risk Factors Penetrating Injury Risk Factor: Negative Globe Rupture Risk Factors: Negative Acute Glaucoma Risk Factors: Negative - Allergies/Home Medications Allergies/Adverse Reactions: Allergies Allergy/AdvReac Type Severity Reaction Status Date / Time bupropion [From Zyban] Allergy Severe Unknown Verified 04/23/19 18:12 Reaction Details moxifloxacin Allergy Severe Palpitation Verified 04/23/19 18:12 s shellfish derived Allergy Severe Anaphylatic Verified 04/23/19 18:12 Shock strawberry Allergy Severe Anaphylatic Verified 04/23/19 18:12 Shock omeprazole Allergy Unknown Verified 04/23/19 18:12 Reaction Details PMH/Surg Hx/FS Hx/Imm Hx Endocrine History: Diabetes, Hyperthyroidism Cancer History: Lung Cancer - Surgical History Surgical History: Yes Surgery Procedure, Year, and Place: lung biopsy. attempted lung surgery - to remove tumors/part of lung, but they were unable to remove them d/t the size - Family History Known Family History: Positive: Other - hyperthyroidism - Social History Occupation: Retired Lives: Alone - her daughter helps her several days per week. Alcohol Use: Rare Substance Use Type: None Smoking Status (MU): Light Every Day Tobacco Smoker Type: Cigarettes Review of Systems All Other Systems Reviewed And Are Negative: Yes Constitutional: Positive: Fatigue Skin: Positive: Negative Eyes: Positive: Blurred Vision, Drainage, Eye Redness ENT: Positive: Other - recent tx of serous otitis was successful--now resolved. Respiratory: Positive: Cough Cardiovascular: Positive: Negative Gastrointestinal: Positive: Negative Motor: Positive: Negative Neurovascular: Positive: Negative Musculoskeletal: Positive: Negative Neurological: Positive: Negative Is Patient Immunocompromised?: No Physical Exam Triage Information Reviewed: Yes Appearance: Ill-Appearing - frail, thin woman, in no acute distress, Thin Vital Signs: Initial Vital Signs Temp 98.6 F 04/23/19 18:05 Pulse 67 04/23/19 18:05 Resp 16 04/23/19 18:05 BP 110/59 04/23/19 18:05 Pulse Ox 95 04/23/19 18:05 Eye Exam: Other - bilateral proptosis. Upper lids erythematous with diffuse swelling. GIANCARLO. Eyes: Positive: Conjunctiva Clear ENT: Positive: Pharynx normal, TMs normal Neck: Positive: Supple, Nontender, No Lymphadenopathy Respiratory: Positive: Decreased breath sounds, Rhonchi - upper right lung osborn, Wheezing - prolonged expiration throughout. Cardiovascular Exam: Normal Cardiovascular: Positive: RRR, No Murmur Musculoskeletal Exam: Normal Neurological: Positive: Alert, Muscle Tone Normal Skin Exam: Normal Eye Complaint Course/Dx - Course Course Of Treatment: erythromycin ointment and warm compresses. - Differential Dx/Diagnosis Differential Diagnosis/HQI/PQRI: Periorbital Cellulitis, Other - blepharitis . Provider Diagnosis: Blepharitis of both eyes Discharge ED - Sign-Out/Discharge Documenting (check all that apply): Patient Departure All imaging exams completed and their final reports reviewed: No Studies - Discharge Plan Condition: Stable Disposition: HOME Prescriptions: Erythromycin OPTH OINT* [Erythromycin 0.5% OPTH OINT*] 1 applic BOTH EYES BID # 1 ophth.oint Patient Education Materials: Blepharitis (ED) Referrals: Yassine Shirley MD [Primary Care Provider] - Additional Instructions: use eye oinntment twice daily for 3 days, then decrease to use before bed. Continue hot compresses to both eyes to relieve dryness. - Billing Disposition and Condition Condition: STABLE Disposition: Home
== END 2019-04-23 19:15 | disposition home or self-care (01) ==
LOC: UCEAST 17:26
DX: H01.004 Unspecified blepharitis left upper eyelid (principal); H01.001 Unspecified blepharitis right upper eyelid; F17.210 Nicotine dependence, cigarettes, uncomplicated; R53.83 Other fatigue; H53.8 Other visual disturbances; R05 Cough; Z88.8 Allergy status to other drugs, medicaments and biological substances; Z88.1 Allergy status to other antibiotic agents; Z91.013 Allergy to seafood; Z91.018 Allergy to other foods
CPT/HCPCS: 99212; G0463

== ENCOUNTER 2019-07-29 23:56 | Inpatient (IN) | payer MEDICARE, MEDICAID ==
[2019-07-30] MEDS ORDERED: NS 0.9% 1000 ML** 1,000 ML IV ONE ×3 (00:04→01:36)
--- NOTE | 2019-07-30 00:07 | ED ---
HPI Diabetic - HPI Summary HPI Summary: Patient complains of high serum glucose per home testing this evening. Patient states she did not take her morning glipizide or metformin. History of DM. Patient states she felt fuzzyheaded through the day. Patient ate 3 hours ago, denies any other symptoms, pain or injury. Medical history is DM, hypothyroid, stage III lung cancer currently on immunotherapy. - History Of Current Complaint Chief Complaint: EDDiabeticProb Hx Obtained From: Patient, Family/Pick Up And Delivery Driver Onset/Duration: Gradual Onset, Lasting Hours Severity Initially: Moderate Severity Currently: Moderate Aggravating: Non-compliant Alleviating: Nothing Associated Signs & Symptoms: Negative - Allergies/Home Medications Allergies/Adverse Reactions: Allergies Allergy/AdvReac Type Severity Reaction Status Date / Time bupropion [From Zyban] Allergy Severe Unknown Verified 07/30/19 02:33 Reaction Details moxifloxacin Allergy Severe Palpitation Verified 07/30/19 02:33 s shellfish derived Allergy Severe Anaphylatic Verified 07/30/19 02:33 Shock strawberry Allergy Severe Anaphylatic Verified 07/30/19 02:33 Shock omeprazole Allergy Unknown Verified 07/30/19 02:33 Reaction Details Home Medications: Home Medications Erythromycin OPTH OINT* [Erythromycin 0.5% OPTH OINT*] 1 applic BOTH EYES BID PRN 07/30/19 [History Confirmed 07/30/19] Nystatin susp 16 oz 100,000 unit PO QID 07/30/19 [History Confirmed 07/30/19] PMH/Surg Hx/FS Hx/Imm Hx Endocrine/Hematology History: Reports: Hx Diabetes - type 2, Hx Thyroid Disease - hyper Cardiovascular History: Reports: Hx Myocardial Infarction, Other Cardiovascular Problems/Disorders - rad & chemo for lung CA 2006 Denies: Hx Hypertension Respiratory History: Reports: Hx Chronic Obstructive Pulmonary Disease (COPD), Other Respiratory Problems/Disorders - HX LUNG CX 2006 GI History: Reports: Hx Gastroesophageal Reflux Disease History: Denies: Hx Renal Disease Musculoskeletal History: Denies: Hx Arthritis, Hx Osteoporosis Sensory History: Denies: Hx Glaucoma Opthamlomology History: Denies: Hx Legally Blind EENT History: Denies: Hx Deafness Psychiatric History: Reports: Hx Panic Disorder - Cancer History Cancer Type, Location and Year: lung Hx Chemotherapy: Yes - last in august 2007 - Surgical History Surgery Procedure, Year, and Place: lung biopsy. attempted lung surgery - to remove tumors/part of lung, but they were unable to remove them d/t the size - Immunization History Date of Tetanus Vaccine: unk Date of Influenza Vaccine: none Infectious Disease History: No Infectious Disease History: Denies: History Other Infectious Disease, Traveled Outside the [place] in Last 30 Days - Family History Known Family History: Positive: Other - hyperthyroidism - Social History Alcohol Use: Rare Hx Substance Use: No Substance Use Type: Reports: None Hx Tobacco Use: Yes Smoking Status (MU): Light Every Day Tobacco Smoker Type: Cigarettes Review of Systems Constitutional: Negative Eyes: Negative ENT: Negative Cardiovascular: Negative Respiratory: Negative Gastrointestinal: Negative Genitourinary: Negative Musculoskeletal: Negative Skin: Negative Neurological/Mental Status: Negative Psychological: Normal All Other Systems Reviewed And Are Negative: Yes Physical Exam Triage Information Reviewed: Yes Vital Signs On Initial Exam: Initial Vitals Temp Pulse Resp BP Pulse Ox 98.1 F 87 20 153/84 91 07/29/19 23:56 07/29/19 23:56 07/29/19 23:56 07/29/19 23:56 07/29/19 23:56 Vital Signs Reviewed: Yes Appearance: Positive: Well-Appearing Skin: Positive: Warm Head/Face: Positive: Normal Head/Face Inspection Eyes: Positive: Normal Neck: Positive: Supple Respiratory/Lung Sounds: Positive: Clear to Auscultation Cardiovascular: Positive: Normal Abdomen Description: Positive: Nontender Musculoskeletal: Positive: Normal Neurological: Positive: Normal Psychiatric: Positive: Normal AVPU Assessment: Alert - Bala Coma Scale Best Eye Response: 4 - Spontaneous Best Motor Response: 6 - Obeys Commands Best Verbal Response: 5 - Oriented Coma Scale Total: 15 Diagnostics - Vital Signs Vital Signs Temp Pulse Resp BP Pulse Ox 07/29/19 23:56 98.1 F 87 20 153/84 91 - Laboratory Result Diagrams: 07/30/19 00:05 07/30/19 00:05 Lab Statement: Any lab studies that have been ordered have been reviewed, and results considered in the medical decision making process. Diabetic Course/Dx - Course Course Of Treatment: Patient complains of high serum glucose per home testing this evening. Patient states she did not take her morning glipizide or metformin. History of DM. Patient states she felt fuzzyheaded through the day. Patient ate 3 hours ago, denies any other symptoms, pain or injury. Medical history is DM, hypothyroid, stage III lung cancer currently on immunotherapy. Vital signs within normal limits. Patient positive for DKA. Admitted to hospitalist. - Diagnoses Provider Diagnoses: DKA (diabetic ketoacidoses) Discharge ED - Sign-Out/Discharge Documenting (check all that apply): Patient Departure - Discharge Plan Condition: Good Disposition: ADMITTED TO [facility] - Billing Disposition and Condition Condition: GOOD Disposition: Admitted to [facility]
[2019-07-30 00:17] LABS: ABS Lymphocytes 0.8 10^3/ul (1.0-4.8); ABS Monocytes 0.5 10^3/ul (0-0.8); ABS Neutrophils 12.4 10^3/ul (1.5-7.7); Hematocrit 47 % (35-47); Hemoglobin 15.5 g/dL (12.0-16.0); Lymphocyte % 5.8 %; Mean Corpuscular HGB Conc 33 g/dL (31-36); Mean Corpuscular Hemoglobin 34 pg (27-31); Mean Corpuscular Volume 103 fL (80-97); Mean Platelet Volume 8.4 fL (7.4-10.4); Platelet Count 185 10^3/uL (150-450); Red Blood Count 4.58 10^6 /uL (3.70-4.87); Red Cell Distribution Width 14 % (10-15); White Blood Count 13.7 10^3/uL (3.5-10.8)
[2019-07-30 00:34] LABS: Albumin 4.7 g/dL (3.2-5.2); Albumin/Globulin Ratio 1.5 (1-3); BUN/Creatinine Ratio 21.4 (8-20); Calcium 10.3 mg/dL (8.6-10.3); EGFR African American 45.5 (>60); EGFR Non-African American 37.6 (>60); Globulin 3.2 g/dL (2-4); Total Bilirubin 0.6 mg/dL (0.2-1.0); Total Protein 7.9 g/dL (6.4-8.9)
[2019-07-30 00:36] LABS: Potassium 5.2 mmol/L (3.5-5.0)
[2019-07-30] MEDS ORDERED: Insulin Infusion 100unit/100mL 100 UNIT/100 ML BAG IV SCH (01:00)
[2019-07-30] MEDS ORDERED: Insulin REGULAR(*) 1 UNITS UNIT IV PUSH ONE (01:01)
[2019-07-30 01:13] LABS: Urine Appearance Clear; Urine Bilirubin Negative (Negative); Urine Blood Negative (Negative); Urine Color Straw; Urine Glucose 3+(>=500 mg/dL) (Negative); Urine Ketones 2+ (Negative); Urine Nitrite Negative (Negative); Urine Protein Negative (Negative); Urine Specific Gravity 1.024 (1.010-1.030); Urine Urobilinogen Negative (Negative)
[2019-07-30 01:40] LABS: Troponin I 0.01 ng/mL (<0.03)
[2019-07-30] MEDS ORDERED: Albuterol HFA INHALER* 8 gm MDI INH PRN (02:38)
[2019-07-30] MEDS ORDERED: Erythromycin OPTH OINT* APPLIC OINT BOTH EYES PRN (02:38)
[2019-07-30] MEDS ORDERED: NS 0.9% 1000 ML** 2,000 ML IV ONE (03:00)
[2019-07-30] MEDS ORDERED: NS 0.9% 1000 ML** 1,000 ML IV SCH (03:00)
[2019-07-30] MEDS ORDERED: D5W 1/2 NS KCl 20 Meq 1000 ML* 1,000 ML IV SCH (03:00)
[2019-07-30 03:53] LABS: Troponin I 0.01 ng/mL (<0.03)
[2019-07-30 04:48] LABS: BUN/Creatinine Ratio 22.4 (8-20); Calcium 7.8 mg/dL (8.6-10.3); EGFR African American 68.7 (>60); EGFR Non-African American 56.8 (>60); Potassium 3.8 mmol/L (3.5-5.0)
[2019-07-30] MEDS ORDERED: Heparin VIAL(*) 5000 UNITS/ML VIAL (FIVE THOUSAND) SUBCUT SCH (06:00)
[2019-07-30 06:42] LABS: ABS Basophils 0.1 10^3/ul (0-0.2); ABS Lymphocytes 1.3 10^3/ul (1.0-4.8); ABS Monocytes 0.8 10^3/ul (0-0.8); ABS Neutrophils 10.6 10^3/ul (1.5-7.7); Eosinophil % 0.1 %; Hematocrit 34 % (35-47); Hemoglobin 11.6 g/dL (12.0-16.0); Lymphocyte % 10.4 %; Mean Corpuscular HGB Conc 35 g/dL (31-36); Mean Corpuscular Hemoglobin 34 pg (27-31); Mean Corpuscular Volume 99 fL (80-97); Mean Platelet Volume 7.6 fL (7.4-10.4); Platelet Count 133 10^3/uL (150-450); Red Cell Distribution Width 13 % (10-15); White Blood Count 12.8 10^3/uL (3.5-10.8)
--- NOTE | 2019-07-30 08:21 | HP ---
CC: Dr. Yassine Shirley; Dr. Micheal Avitia * ADMISSION HISTORY AND PHYSICAL: DATE OF ADMISSION: 07/30/19 CHIEF COMPLAINT: Elevated sugar and dizziness. HISTORY OF PRESENT ILLNESS: This is a 64-year-old female with past medical history of unresectable stage IIIB non-small cell lung cancer, diagnosed in 2006 ; history of diabetes which she states is secondary to steroid use for her malignancy; COPD with an active smoking history; depression; anxiety; hyperthyroidism secondary to Graves' disease, on thyroid suppressive medications , was brought in today as the patient noted elevated sugar. The patient stated that she has been feeling sluggish all evening while she went to [employer] and having some lightheadedness. She has also noticed increased urination and dry mouth and increased thirst and when she reached home she noticed that her sugar was very elevated as her meter said it was greater than 600. Upon further questioning, she stated that she forgot to take her home medications including metformin and glipizide. Daughter who was present at bedside stated that her mom does have an habit of forgetting these medications and on top of that the patient has had meatballs and medium soda during dinner, which possibly contributed to the patient's symptomatology as well. The patient otherwise offers no chest pain, no vomiting, but she did have some mild shortness of breath upon arrival along with some nausea and she also stated that her urine felt warm and smelled funny. PAST MEDICAL HISTORY: As mentioned diabetes, which she states is secondary to steroid use; COPD; hyperthyroidism secondary to Graves'; gastroesophageal reflux disease; depression; anxiety; history of palpitations; and stage IIIB non -small cell lung cancer diagnosed in 2006, has still been receiving some chemotherapy by Dr. Micheal Avitia, last chemo was about a month ago. PAST SURGICAL HISTORY: She has had tubal ligation and biopsy of the lung and she has also received chemotherapy. HOME MEDICATIONS: The patient is on: 1. Nystatin p.o. 4 times a day. 2. Glipizide 5 mg oral daily. 3. Erythromycin for both eyes b.i.d. p.r.n. 4. Ventolin inhaler p.r.n. for shortness of breath. 5. Metformin 500 mg p.o. b.i.d. 6. Ativan 0.5 to 1 mg p.o. as needed for anxiety. 7. Folic acid 0.4 mg oral daily. 8. Vitamin B complex 1 tablet oral daily. 9. Tapazole 15 mg oral daily. ALLERGIES: The patient is allergic to BUPROPION, MOXIFLOXACIN, SHELLFISH, STRAWBERRY, OMEPRAZOLE. FAMILY HISTORY: Father had colon cancer at age 39 and had an VT at age 41. Brother had brain cancer and at age 45. No other history of malignancy. SOCIAL HISTORY: She has begun to smoke 1-1/2 pack per day since age 14, continues to smoke about 2 to 3 cigarettes per day. She currently lives alone, but her daughter does stay 3 times a week to help her out and she is otherwise full code. REVIEW OF SYSTEMS: A 14-point review of systems did not reveal any new information other than what is mentioned in the HPI. PHYSICAL EXAMINATION GENERAL: The patient is awake, alert and oriented x3; does not appear to be in any acute distress. VITAL SIGNS: Temperature was recorded at 98.1 in the ER, BP was noted to be 112 /56, heart rate 78, respiration rate 20, saturating 92% on room air. HEENT: Atraumatic, normocephalic. Bilateral pupils reactive. Oral mucosa was dry. NECK: Supple. No jugular venous distention. LUNGS: Clear to auscultation bilaterally. No wheezing, rhonchi, or rales. HEART: S1, S2. Regular rate and rhythm. ABDOMEN: Soft, nontender, nondistended. EXTREMITIES: No cyanosis, clubbing, or edema. DIAGNOSTIC STUDIES/LAB DATA: CBC shows elevated white count of 13.7, hemoglobin and hematocrit stable, platelet count was stable. ABG was showing severe acidosis with pH of 7.13. Comprehensive metabolic panel shows pseudohyponatremia with sodium of 127, when corrected for the elevated glucose, it was noted to be closer to 130; potassium elevated at 5.2; bicarb decreased at 11; anion gap was calculated to be 23; BUN elevated at 30; creatinine at 1.4 , lactic acid elevated at 3.9. Urinalysis was negative for any leuk esterase or nitrite. EKG showed sinus rhythm at 74 beats per minute without any ST elevation changes. When compared to her older EKG from March of 2019, the patient's overall rhythm seems to be unchanged. IMPRESSION: This is a 64-year-old female with a history of non-small cell lung cancer with last chemo over a month ago and history of diabetes, noncompliant with medications, here with diabetic ketoacidosis and lactic acidosis likely secondary to diabetic ketoacidosis, acute kidney injury likely secondary to diabetic ketoacidosis. ASSESSMENT AND PLAN: 1. Diabetic ketoacidosis. We will start the patient on fingersticks monitoring every hour and along with insulin drip via DKA protocol and repeat labs per protocol and bridge once sugars are less than 200 and consider restarting her home diabetic medications. 2. Acute kidney injury secondary to severe dehydration from diabetic ketoacidosis. We will continue with IV hydration. 3. Hyperkalemia likely secondary to diabetic ketoacidosis and should improve once the insulin is initiated. 4. Lactic acidosis. It should resolve with IV hydration. 5. Active Graves' disease. We will restart her Tapazole. 6. History of anxiety. Restart her Ativan. 7. History of chronic obstructive pulmonary disease. Restart albuterol. 8. DVT prophylaxis: We will start the patient on subcutaneous heparin. 9. Code status: The patient agrees to be full code. [id number]/[facility] #: [id number] MTDD
[2019-07-30] MEDS ORDERED: Albuterol/Ipratropium NEB.SOL* Albuterol 2.5 MG/Ipratropium 0.5 MG 3 ML INH PRN (08:28)
--- NOTE | 2019-07-30 08:28 | PN ---
Progress Note - Progress Note Date of Service: 07/30/19 Note: Progress Note -- Critical Care 24 hour events/significant events: FS trending down. AG almost closed. ROS: negative except for pertinent positives mentioned above; Tele: NSR Vitals: Vital Signs: Temp Pulse Resp BP Pulse Ox 97.9 F 70 20 88/47 91 07/30/19 07:47 07/30/19 07:00 07/30/19 07:00 07/30/19 07:00 07/30/19 07:00 O2/Vent: 2L Nasal Cannula Infusions: D5 1/2NS + K, Insulin Medications: Albuterol (Ventolin Hfa Inhaler*) 1 puff INH Q4H PRN PRN Reason: SOB/WHEEZING Folic Acid (Folvite Tab*) 0.5 mg PO DAILY [facility] Heparin Sodium (Porcine) (Heparin Vial(*)) 5,000 units SUBCUT Q8HR [place] Last Admin: 07/30/19 07:00 Dose: 5,000 units Insulin Human Regular (Insulin Regular Iv Infusion 1 Unit/Ml) 100 unit in 100 mls @ 2.041 mls/hr IV .(INITIAL RATE) [facility]; Protocol Last Admin: 07/30/19 01:49 Dose: 4.082 mls/hr Potassium Chloride/Dextrose (D5w 1/2 Ns Kcl 20 Meq 1000 Ml*) 1,000 mls @ 125 mls/hr IV PER RATE [facility] Lorazepam (Ativan Tab(*)) 0.5 mg PO BID PRN PRN Reason: ANXIETY Methimazole (Tapazole Tab*) 15 mg PO DAILY [facility] Nystatin (Nystatin Suspension*) 100,000 units PO QID [facility] Vitamin B Complex/Vitamin E (B Complex-50*) 1 tab PO DAILY [facility] Physical Exam: Constitutional: awake, alert, no distress, no diaphoresis Head: normocephalic, atraumatic Eyes: no pallor, no icterus ENT: moist mucous membranes Neck: soft, supple, no jvd, no stridor CVS: normal rate, regular, no murmur Chest/Resp: bilateral air entry, no rhales, no wheeze, no rhonchi, no acc muscle use Abdomen/GI: soft, nontender, nondistended, BS+ Ext/Msk: warm, pulses+, no edema Skin: intact, warm Neuro: awake, alert, orientedx3, moving all extremities, no gross focal deficit Psych: normal affect Labs: Laboratory Results - last 24 hr 07/30/19 07/30/19 07/30/19 00:05 00:05 00:05 WBC 13.7 H RBC 4.58 Hgb 15.5 Hct 47 MCV 103 H MCH 34 H MCHC 33 RDW 14 Plt Count 185 MPV 8.4 Neut % (Auto) 90.5 Lymph % (Auto) 5.8 [place] % (Auto) 3.6 Eos % (Auto) 0.0 Baso % (Auto) 0.1 Absolute Neuts (auto) 12.4 H Absolute Lymphs (auto) 0.8 L Absolute Monos (auto) 0.5 Absolute Eos (auto) 0.0 Absolute Basos (auto) 0.0 Absolute Nucleated RBC 0.0 Nucleated RBC % 0.0 VBG pH VBG pCO2 VBG pO2 VBG HCO3 VBG O2 Saturation VBG Base Excess Sodium 127 L Potassium 5.2 H Chloride 93 L Carbon Dioxide 11 L* Anion Gap 23 H BUN 30 H Creatinine 1.40 H Est GFR ( Amer) 45.5 Est GFR (Non-Af Amer) 37.6 BUN/Creatinine Ratio 21.4 H Glucose 719 H* Glucose Meter Confirm Lactic Acid 3.9 H* Calcium 10.3 Total Bilirubin 0.60 AST 16 ALT 14 Alkaline Phosphatase 167 H Troponin I 0.01 Total Protein 7.9 Albumin 4.7 Globulin 3.2 Albumin/Globulin Ratio 1.5 Urine Color Urine Appearance Urine pH Ur Specific [place] Urine Protein Urine Ketones Urine Blood Urine Nitrate Urine Bilirubin Urine Urobilinogen Ur Leukocyte Esterase Urine Glucose 07/30/19 07/30/19 07/30/19 00:45 00:55 02:00 WBC RBC Hgb Hct MCV MCH MCHC RDW Plt Count MPV Neut % (Auto) Lymph % (Auto) [place] % (Auto) Eos % (Auto) Baso % (Auto) Absolute Neuts (auto) Absolute Lymphs (auto) Absolute Monos (auto) Absolute Eos (auto) Absolute Basos (auto) Absolute Nucleated RBC Nucleated RBC % VBG pH 7.13 L VBG pCO2 35 L VBG pO2 < 38.0 VBG HCO3 10.4 L VBG O2 Saturation 40.4 L VBG Base Excess -16.6 L Sodium Potassium Chloride Carbon Dioxide Anion Gap BUN Creatinine Est GFR ( Amer) Est GFR (Non-Af Amer) BUN/Creatinine Ratio Glucose Glucose Meter Confirm 505 H* Lactic Acid Calcium Total Bilirubin AST ALT Alkaline Phosphatase Troponin I Total Protein Albumin Globulin Albumin/Globulin Ratio Urine Color Straw Urine Appearance Clear Urine pH 5.0 Ur Specific [place] 1.024 Urine Protein Negative Urine Ketones 2+ A Urine Blood Negative Urine Nitrate Negative Urine Bilirubin Negative Urine Urobilinogen Negative Ur Leukocyte Esterase Negative Urine Glucose 3+(>=500 mg/dl) A 07/30/19 07/30/19 07/30/19 03:20 03:20 04:00 WBC RBC Hgb Hct MCV MCH MCHC RDW Plt Count MPV Neut % (Auto) Lymph % (Auto) [place] % (Auto) Eos % (Auto) Baso % (Auto) Absolute Neuts (auto) Absolute Lymphs (auto) Absolute Monos (auto) Absolute Eos (auto) Absolute Basos (auto) Absolute Nucleated RBC Nucleated RBC % VBG pH VBG pCO2 VBG pO2 VBG HCO3 VBG O2 Saturation VBG Base Excess Sodium 135 D Potassium 3.8 Chloride 111 Carbon Dioxide 11 L* Anion Gap 13 H BUN 22 Creatinine 0.98 H Est GFR ( Amer) 68.7 Est GFR (Non-Af Amer) 56.8 BUN/Creatinine Ratio 22.4 H Glucose 276 H Glucose Meter Confirm 367 H 273 H Lactic Acid 2.4 H* Calcium 7.8 L Total Bilirubin AST ALT Alkaline Phosphatase Troponin I 0.01 Total Protein Albumin Globulin Albumin/Globulin Ratio Urine Color Urine Appearance Urine pH Ur Specific [place] Urine Protein Urine Ketones Urine Blood Urine Nitrate Urine Bilirubin Urine Urobilinogen Ur Leukocyte Esterase Urine Glucose 07/30/19 07/30/19 06:33 06:33 WBC 12.8 H RBC 3.40 L Hgb 11.6 L Hct 34 L MCV 99 H MCH 34 H MCHC 35 RDW 13 Plt Count 133 L MPV 7.6 Neut % (Auto) 82.8 Lymph % (Auto) 10.4 [place] % (Auto) 6.3 Eos % (Auto) 0.1 Baso % (Auto) 0.4 Absolute Neuts (auto) 10.6 H Absolute Lymphs (auto) 1.3 Absolute Monos (auto) 0.8 Absolute Eos (auto) 0.0 Absolute Basos (auto) 0.1 Absolute Nucleated RBC 0.0 Nucleated RBC % 0.0 VBG pH VBG pCO2 VBG pO2 VBG HCO3 VBG O2 Saturation VBG Base Excess Sodium Potassium Chloride Carbon Dioxide Anion Gap BUN Creatinine Est GFR ( Amer) Est GFR (Non-Af Amer) BUN/Creatinine Ratio Glucose Glucose Meter Confirm Lactic Acid Calcium Total Bilirubin AST ALT Alkaline Phosphatase Troponin I 0.01 Total Protein Albumin Globulin Albumin/Globulin Ratio Urine Color Urine Appearance Urine pH Ur Specific [place] Urine Protein Urine Ketones Urine Blood Urine Nitrate Urine Bilirubin Urine Urobilinogen Ur Leukocyte Esterase Urine Glucose Imaging: None Assessment: 64F with hyperthyroid, metastatic NSCLC on chemo, steroid induced DM presents with dizziness 2/2 DKA after missing her medication doses for unknown number of days. Plan: Neuro- -Delirium prec; avoid BDZ - pain control CVS- - bp borderline - iv hydration Resp- acute hypoxic respiratory failure - not on oxygen at home - on 2L NC with saturation 90% - will check cxr - 2/2 lung ca/copd and possible pneumonia ID- post obstructive pneumonia? - elevated wbc - afebrile - will check procalcitonin - check xray - check urine legionella/pneumococcal ag - will check blood culture of spikes fever GI- Npo until labs improve Renal- -strict I/O, replete to keep K>4, Mg>2 -neff as indicated Heme- NSCLC - metastatic - f/u onc as outpatient Endo- DKA - 2/2 medication non-compliance - iv hydration - serial bmp - insulin gtt - replete electrolytes - methimazole for hyperthyroid Musculsk- pressure ulcer prophylaxis. Out of bed to chair. Wounds- none Nutrition- npo DVT prophylaxis: lovenox GI prophylaxis: ppi Central Line: port Arterial Line: none Neff Cathetor: none Disposition: Patient requires Critical Care/ICU for insulin gtt therapy. Patient clinical status: Fair Code Status:Patient considering DNR/DNI.
[2019-07-30 08:31] LABS: Calcium 7.5 mg/dL (8.6-10.3); EGFR African American 82.1 (>60); EGFR Non-African American 67.8 (>60); Potassium 3.8 mmol/L (3.5-5.0)
[2019-07-30] MEDS: LORazepam TAB(*) 0.5 MG PO PRN (08:37)
[2019-07-30] MEDS: Vitamin B Complex TAB PO SCH (08:37)
[2019-07-30] MEDS: Folic Acid TAB* 1 MG PO SCH (08:37)
[2019-07-30] MEDS: Nystatin SUSPENSION* 100000 UNITS/ML 5 ML UDC PO SCH ×4 (08:39→22:37)
[2019-07-30] MEDS: Methimazole TAB* 5 MG PO SCH (08:39)
[2019-07-30] MEDS ORDERED: D5W 1/4 NS 20 Meq KCL 1000 ML* 1,000 ML IV SCH (09:00)
[2019-07-30] MEDS ORDERED: D5W 1/2 NS 40 Meq KCL 1000 ML* 1,000 ML IV SCH (09:00)
[2019-07-30] MEDS: Enoxaparin(*) 40 MG/0.4 ML SYR SUBCUT SCH (09:22)
[2019-07-30] MEDS: Insulin GLARGINE(*) 1 UNITS UNIT SUBCUT SCH (09:23)
[2019-07-30] MEDS: Insulin LISPRO* 1 UNITS UNIT SUBCUT SCH ×3 (11:16→22:34)
[2019-07-30 14:26] LABS: BUN/Creatinine Ratio 15.9 (8-20); Calcium 8.2 mg/dL (8.6-10.3); EGFR African American 84.4 (>60); EGFR Non-African American 69.7 (>60); Magnesium 1.7 mg/dL (1.9-2.7); Phosphorus 1.7 mg/dL (2.5-5.0); Potassium 3.8 mmol/L (3.5-5.0)
[2019-07-30] MEDS ORDERED: Magnesium Sulfate 1 GM IV* 1 GM/100 ML BAG IV ONE (14:27)
[2019-07-30] MEDS ORDERED: Potassium Phosphate IV* 15 MMOLE in NS 0.9% 250 ML* 250 ML IVPB ONE (14:27)
[2019-07-31 06:34] LABS: ABS Lymphocytes 1.3 10^3/ul (1.0-4.8); ABS Monocytes 0.6 10^3/ul (0-0.8); ABS Neutrophils 6.2 10^3/ul (1.5-7.7); Eosinophil % 0.6 %; Hematocrit 34 % (35-47); Hemoglobin 11.7 g/dL (12.0-16.0); Lymphocyte % 15.6 %; Mean Corpuscular HGB Conc 35 g/dL (31-36); Mean Corpuscular Hemoglobin 34 pg (27-31); Mean Corpuscular Volume 98 fL (80-97); Mean Platelet Volume 7.8 fL (7.4-10.4); Platelet Count 141 10^3/uL (150-450); Red Blood Count 3.43 10^6 /uL (3.70-4.87); Red Cell Distribution Width 14 % (10-15); White Blood Count 8.1 10^3/uL (3.5-10.8)
[2019-07-31 07:01] LABS: Calcium 7.8 mg/dL (8.6-10.3); Magnesium 1.8 mg/dL (1.9-2.7); Potassium 4.2 mmol/L (3.5-5.0)
[2019-07-31 07:06] LABS: BUN/Creatinine Ratio 13.3 (8-20); EGFR African American 68.7 (>60); EGFR Non-African American 56.8 (>60)
[2019-07-31] MEDS: Insulin LISPRO* 1 UNITS UNIT SUBCUT SCH ×5 (08:40→21:10)
[2019-07-31] MEDS: Enoxaparin(*) 40 MG/0.4 ML SYR SUBCUT SCH (08:40)
[2019-07-31] MEDS: Nystatin SUSPENSION* 100000 UNITS/ML 5 ML UDC PO SCH ×4 (08:41→21:09)
[2019-07-31] MEDS: Folic Acid TAB* 1 MG PO SCH (08:43)
[2019-07-31] MEDS: Vitamin B Complex TAB PO SCH (08:43)
[2019-07-31] MEDS: Insulin GLARGINE(*) 1 UNITS UNIT SUBCUT SCH (11:18)
--- NOTE | 2019-07-31 11:22 | CONSULT ---
Consultation - Reason for Consultation Reason for Consultation: Follow up of re current non small cell lung cancer Ordering Provider: Diogo Garcia Chief Complaint: Admitted with DKA in the setting of recurrent NSCLC History of Present Illness: This pleasant 64 year old woman is followed by Dr Avitia for a diagnosis of recurrent NSCLC. She originally presented in 2006 with a T4N0M0 stage bIIIB Non small cell lung cancer. She was felt to be unresectable at that time and underwent concurrent chemoradiotherapy with DR Jenkins to 6500 cgy and concurrent Carboplatin and Taxol. Following up PET suggested a complete response and she was subsequently followed on surveillance. In followup she was noted to develop a right infrahilar mass consistent with recurrence. Notes report no actionable mutations. She was begun on Carboplatin and Pemetrexed 06/2018, developing a severe hypersensitivity reaction to Carboplatin on cycle II. She subsequently was changed to single agent Pemetrexed. Follow up note 07/10/[address] Avitia notes progressive disease with plans to switch to single agent Nivolumab. She received cycle I Nivolumab 07/17/2019 480 mg of a 4 week cycle. Of note is persistent elevation in blood glucose that was felt in part secondary to steroid premedications around the time of chemotherapy. She also has a history of hyperthyroidism that is felt secondary to Graves and has been maintained on Methimazole. She has now been admitted with DKA initially treated with IV Insulin and now transitioned to Lantus and Humalog. I am asked to comment on the status of her lung malignancy Allergies/Medications Allergies/Adverse Reactions: Allergies Allergy/AdvReac Type Severity Reaction Status Date / Time bupropion [From Zyban] Allergy Severe Unknown Verified 07/30/19 02:33 Reaction Details moxifloxacin Allergy Severe Palpitation Verified 07/30/19 02:33 s shellfish derived Allergy Severe Anaphylatic Verified 07/30/19 02:33 Shock strawberry Allergy Severe Anaphylatic Verified 07/30/19 02:33 Shock omeprazole Allergy Unknown Verified 07/30/19 02:33 Reaction Details History - Past Medical History Hx Cancer: Yes Hx Diabetes: Yes Other History: hyperthyroidism - Social History Hx Alcohol Use: No Hx Tobacco Use: Yes Review of Systems - Review of Systems Constitutional Symptoms: Positive: Fatigue Dermatology: Positive: Normal HEENT: Positive: Normal Eyes: Positive: Normal Thyroid: Positive: Primary Hyperthyroidism Pulmonary: Positive: COPD Cardiology: Positive: Normal Gastroenterology: Positive: Normal Genital - Urinary: Positive: Normal Endocrinology: Positive: Diabetes Mellitus Neurology: Positive: Normal Psychiatry: Positive: Anxiety Physical Exam - Physical Exam Physical Examination: alert and oriented Lungs CTA Cardiac RRR Abdomen soft and nontender Neuro nonfocal extrem w/o cce Results - Lab Results Lab Results: 07/30/19 07/30/19 07/30/19 00:05 00:05 00:05 WBC 13.7 H RBC 4.58 Hgb 15.5 Hct 47 MCV 103 H MCH 34 H MCHC 33 RDW 14 Plt Count 185 MPV 8.4 Neut % (Auto) 90.5 Lymph % (Auto) 5.8 [place] % (Auto) 3.6 Eos % (Auto) 0.0 Baso % (Auto) 0.1 Absolute Neuts (auto) 12.4 H Absolute Lymphs (auto) 0.8 L Absolute Monos (auto) 0.5 Absolute Eos (auto) 0.0 Absolute Basos (auto) 0.0 Absolute Nucleated RBC 0.0 Nucleated RBC % 0.0 VBG pH VBG pCO2 VBG pO2 VBG HCO3 VBG O2 Saturation VBG Base Excess Sodium 127 L Potassium 5.2 H Chloride 93 L Carbon Dioxide 11 L* Anion Gap 23 H BUN 30 H Creatinine 1.40 H Est GFR ( Amer) 45.5 Est GFR (Non-Af Amer) 37.6 BUN/Creatinine Ratio 21.4 H Glucose 719 H* POC Glucose (mg/dL) Glucose Meter Confirm Hemoglobin A1c Lactic Acid 3.9 H* Calcium 10.3 Phosphorus Magnesium Total Bilirubin 0.60 AST 16 ALT 14 Alkaline Phosphatase 167 H Troponin I 0.01 Total Protein 7.9 Albumin 4.7 Globulin 3.2 Albumin/Globulin Ratio 1.5 TSH Free T4 Urine Color Urine Appearance Urine pH Ur Specific [place] Urine Protein Urine Ketones Urine Blood Urine Nitrate Urine Bilirubin Urine Urobilinogen Ur Leukocyte Esterase Urine Glucose 07/30/19 07/30/19 07/30/19 00:45 00:55 02:00 WBC RBC Hgb Hct MCV MCH MCHC RDW Plt Count MPV Neut % (Auto) Lymph % (Auto) [place] % (Auto) Eos % (Auto) Baso % (Auto) Absolute Neuts (auto) Absolute Lymphs (auto) Absolute Monos (auto) Absolute Eos (auto) Absolute Basos (auto) Absolute Nucleated RBC Nucleated RBC % VBG pH 7.13 L VBG pCO2 35 L VBG pO2 < 38.0 VBG HCO3 10.4 L VBG O2 Saturation 40.4 L VBG Base Excess -16.6 L Sodium Potassium Chloride Carbon Dioxide Anion Gap BUN Creatinine Est GFR ( Amer) Est GFR (Non-Af Amer) BUN/Creatinine Ratio Glucose POC Glucose (mg/dL) Glucose Meter Confirm 505 H* Hemoglobin A1c Lactic Acid Calcium Phosphorus Magnesium Total Bilirubin AST ALT Alkaline Phosphatase Troponin I Total Protein Albumin Globulin Albumin/Globulin Ratio TSH Free T4 Urine Color Straw Urine Appearance Clear Urine pH 5.0 Ur Specific [place] 1.024 Urine Protein Negative Urine Ketones 2+ A Urine Blood Negative Urine Nitrate Negative Urine Bilirubin Negative Urine Urobilinogen Negative Ur Leukocyte Esterase Negative Urine Glucose 3+(>=500 mg/dl) A 07/30/19 07/30/19 07/30/19 03:20 03:20 04:00 WBC RBC Hgb Hct MCV MCH MCHC RDW Plt Count MPV Neut % (Auto) Lymph % (Auto) [place] % (Auto) Eos % (Auto) Baso % (Auto) Absolute Neuts (auto) Absolute Lymphs (auto) Absolute Monos (auto) Absolute Eos (auto) Absolute Basos (auto) Absolute Nucleated RBC Nucleated RBC % VBG pH VBG pCO2 VBG pO2 VBG HCO3 VBG O2 Saturation VBG Base Excess Sodium 135 D Potassium 3.8 Chloride 111 Carbon Dioxide 11 L* Anion Gap 13 H BUN 22 Creatinine 0.98 H Est GFR ( Amer) 68.7 Est GFR (Non-Af Amer) 56.8 BUN/Creatinine Ratio 22.4 H Glucose 276 H POC Glucose (mg/dL) Glucose Meter Confirm 367 H 273 H Hemoglobin A1c Lactic Acid 2.4 H* Calcium 7.8 L Phosphorus Magnesium Total Bilirubin AST ALT Alkaline Phosphatase Troponin I 0.01 Total Protein Albumin Globulin Albumin/Globulin Ratio TSH Free T4 Urine Color Urine Appearance Urine pH Ur Specific [place] Urine Protein Urine Ketones Urine Blood Urine Nitrate Urine Bilirubin Urine Urobilinogen Ur Leukocyte Esterase Urine Glucose 07/30/19 07/30/19 07/30/19 06:33 06:33 06:33 WBC 12.8 H RBC 3.40 L Hgb 11.6 L Hct 34 L MCV 99 H MCH 34 H MCHC 35 RDW 13 Plt Count 133 L MPV 7.6 Neut % (Auto) 82.8 Lymph % (Auto) 10.4 [place] % (Auto) 6.3 Eos % (Auto) 0.1 Baso % (Auto) 0.4 Absolute Neuts (auto) 10.6 H Absolute Lymphs (auto) 1.3 Absolute Monos (auto) 0.8 Absolute Eos (auto) 0.0 Absolute Basos (auto) 0.1 Absolute Nucleated RBC 0.0 Nucleated RBC % 0.0 VBG pH VBG pCO2 VBG pO2 VBG HCO3 VBG O2 Saturation VBG Base Excess Sodium Potassium Chloride Carbon Dioxide Anion Gap BUN Creatinine Est GFR ( Amer) Est GFR (Non-Af Amer) BUN/Creatinine Ratio Glucose POC Glucose (mg/dL) Glucose Meter Confirm Hemoglobin A1c 8.2 H Lactic Acid Calcium Phosphorus Magnesium Total Bilirubin AST ALT Alkaline Phosphatase Troponin I 0.01 Total Protein Albumin Globulin Albumin/Globulin Ratio TSH Free T4 Urine Color Urine Appearance Urine pH Ur Specific [place] Urine Protein Urine Ketones Urine Blood Urine Nitrate Urine Bilirubin Urine Urobilinogen Ur Leukocyte Esterase Urine Glucose 07/30/19 07/30/19 07/30/19 08:08 13:56 16:32 WBC RBC Hgb Hct MCV MCH MCHC RDW Plt Count MPV Neut % (Auto) Lymph % (Auto) [place] % (Auto) Eos % (Auto) Baso % (Auto) Absolute Neuts (auto) Absolute Lymphs (auto) Absolute Monos (auto) Absolute Eos (auto) Absolute Basos (auto) Absolute Nucleated RBC Nucleated RBC % VBG pH VBG pCO2 VBG pO2 VBG HCO3 VBG O2 Saturation VBG Base Excess Sodium 136 138 Potassium 3.8 3.8 Chloride 116 H 114 H Carbon Dioxide 16 L 19 L Anion Gap 4 5 BUN 16 13 Creatinine 0.84 0.82 Est GFR ( Amer) 82.1 84.4 Est GFR (Non-Af Amer) 67.8 69.7 BUN/Creatinine Ratio 19.0 15.9 Glucose 146 H 159 H POC Glucose (mg/dL) 276 H Glucose Meter Confirm Hemoglobin A1c Lactic Acid Calcium 7.5 L 8.2 L Phosphorus 1.7 L Magnesium 1.7 L Total Bilirubin AST ALT Alkaline Phosphatase Troponin I Total Protein Albumin Globulin Albumin/Globulin Ratio TSH Free T4 Urine Color Urine Appearance Urine pH Ur Specific [place] Urine Protein Urine Ketones Urine Blood Urine Nitrate Urine Bilirubin Urine Urobilinogen Ur Leukocyte Esterase Urine Glucose 07/30/19 07/31/1907/31/20 22:19 06:25 06:25 WBC 8.1 RBC 3.43 L Hgb 11.7 L Hct 34 L MCV 98 H MCH 34 H MCHC 35 RDW 14 Plt Count 141 L MPV 7.8 Neut % (Auto) 76.3 Lymph % (Auto) 15.6 [place] % (Auto) 7.0 Eos % (Auto) 0.6 Baso % (Auto) 0.5 Absolute Neuts (auto) 6.2 Absolute Lymphs (auto) 1.3 Absolute Monos (auto) 0.6 Absolute Eos (auto) 0.0 Absolute Basos (auto) 0.0 Absolute Nucleated RBC 0.0 Nucleated RBC % 0.0 VBG pH VBG pCO2 VBG pO2 VBG HCO3 VBG O2 Saturation VBG Base Excess Sodium 140 Potassium 4.2 Chloride 114 H Carbon Dioxide 22 Anion Gap 4 BUN 13 Creatinine 0.98 H Est GFR ( Amer) 68.7 Est GFR (Non-Af Amer) 56.8 BUN/Creatinine Ratio 13.3 Glucose 212 H POC Glucose (mg/dL) 226 H Glucose Meter Confirm Hemoglobin A1c Lactic Acid Calcium 7.8 L Phosphorus Magnesium 1.8 L Total Bilirubin AST ALT Alkaline Phosphatase Troponin I Total Protein Albumin Globulin Albumin/Globulin Ratio TSH Cancelled Free T4 Cancelled Urine Color Urine Appearance Urine pH Ur Specific [place] Urine Protein Urine Ketones Urine Blood Urine Nitrate Urine Bilirubin Urine Urobilinogen Ur Leukocyte Esterase Urine Glucose 07/31/19 07:35 WBC RBC Hgb Hct MCV MCH MCHC RDW Plt Count MPV Neut % (Auto) Lymph % (Auto) [place] % (Auto) Eos % (Auto) Baso % (Auto) Absolute Neuts (auto) Absolute Lymphs (auto) Absolute Monos (auto) Absolute Eos (auto) Absolute Basos (auto) Absolute Nucleated RBC Nucleated RBC % VBG pH VBG pCO2 VBG pO2 VBG HCO3 VBG O2 Saturation VBG Base Excess Sodium Potassium Chloride Carbon Dioxide Anion Gap BUN Creatinine Est GFR ( Amer) Est GFR (Non-Af Amer) BUN/Creatinine Ratio Glucose POC Glucose (mg/dL) 252 H Glucose Meter Confirm Hemoglobin A1c Lactic Acid Calcium Phosphorus Magnesium Total Bilirubin AST ALT Alkaline Phosphatase Troponin I Total Protein Albumin Globulin Albumin/Globulin Ratio TSH Free T4 Urine Color Urine Appearance Urine pH Ur Specific [place] Urine Protein Urine Ketones Urine Blood Urine Nitrate Urine Bilirubin Urine Urobilinogen Ur Leukocyte Esterase Urine Glucose Assessment and Plan Impression: Recurrent Non Small Cell Lung Cancer currently on Nivolumab Glucose Intolerance now admitted with DKA (? islet cell dysfunction exacerbated by Nivolumab) Hyperthyroidism Multifactorial mild anemia Reported COPD Plan: Will plan reinitiation of Nivolumab as an outpatient with monitoring of blood glucose On Lantus and Sliding scale Insulin with endocrinology follow up planned Continues on Methimazole Will inform Dr Avitia of patient's admission
[2019-07-31] MEDS: Methimazole TAB* 5 MG PO SCH (12:32)
[2019-07-31] MEDS: LORazepam TAB(*) 0.5 MG PO PRN ×2 (12:44→21:09)
--- NOTE | 2019-07-31 12:59 | CONSULT ---
Consult Consult: [facility] Inpatient Consult Note Date of Consult: 07/31/19 Reason for Consult: DKA Reason for Admission: acute hyperglycemia with DKA ASSESSMENT: 64 yo F with extensive medical history and steroid-induced T2DM since 2018, now presenting with acute, severe hyperglycemia with ketoacidosis. While ketosis-prone T2DM remains a possibility in this case, the more likely scenario is acute, autoimmune T1DM caused by initiation of nivolumab immunotherapy on 07/17/19. The case was discussed with her outpatient oncology team (Adore/Samreen). Regardless of the eventual diagnosis, she will require a multi-dose insulin regimen to maintain BG<160 and prevent DKA in the future. Her insulin requirement is approximately 0.5 units/kg/day = 30 units/day, which should be given as scheduled doses; sliding scale may be used until her BG her blood glucose is stable and <160. She was initially fearful of starting insulin , but recognizes the need to replace insulin in the short term and was eager to start using a wearable glucose monitor instead of checking fingerstick BG; this would also be useful for prevention of hypoglycemia. I see no reason to avoid nivolumab in the future, as long as her diabetes is controlled with insulin. Finally, I recommend screening for other autoimmune endocrinopathies. PLAN: - check the following labs as inpatient: - TSH - free T4 - total T3 - C-peptide - Diabetes Mellitus Type 1 Eval - Thyrotropin Receptor Antibody - cortisol - ACTH - FSH/LH - 21-Hydroxylase Ab - increase Lantus to 16 units daily - start Humalog 4 units with meals, plus sliding scale - BG 151-200 -- 1 unit - BG 201-250 -- 2 units - BG 251-300 -- 3 units - BG 301-350 -- 4 units - BG 351-400 -- 5 units - BG >400 -- 6 units and call MD - start Freestyle Claribel CGM (prescription given to patient) - follow-up with [facility] Endocrinology on 08/13/19 at 3:30pm (done) - enlist outpatient diabetes coordination with Payton Solano (done) - please contact Dr. Rangel this weekend if questions arise (notified) SUBJECTIVE: History of Present Illness: 64 yo F history of double-primary lung cancer in 2007 and 2018 on cytotoxic chemotherapy in 2019, now presenting with severe hyperglycemia and ketoacidosis. She was in her usual state of fair health until several days prior to admission, when she started experiencing fatigue, dry mouth, polyuria and polydipsia. She checked her BG at home and saw >600mg/dL, so she presented to [facility] lab, where she had moderate DKA. She was treated with SQ and IV insulin with rapid control of hyperglycemia and acidosis. She was diagnosed with steroid-induced T2DM in late 2018 after initiation of chemotherapy. Her A1c was 10.5% at that time, but <8% more recently. She has been followed by endocrinology at [place] (Charla and Alecia) since 2002 for autoimmune (Graves'-type) hyperthyroidism and they have also managed her T2DM with metformin and glipizide. She has no known complications of diabetes. Past Medical History: 1. Lung CA 2006 and 2017 2. T2DM 2017 3. Graves' Disease 2002 4. Anxiety Disorder 5. COPD Medications Prior to Admission: LORazepam TAB(*) [Ativan 0.5 MG TAB (*)] 0.5 - 1 mg PO SEE INSTRUCTIONS PRN 02/26 [History Confirmed 07/30/19] Methimazole TAB* [Tapazole TAB*] 15 mg PO DAILY 04/25/12 [History Confirmed ] Albuterol HFA INHALER* [Ventolin HFA Inhaler*] 1 puff INH SEE INSTRUCTIONS PRN 06/19/18 [History Confirmed 07/30/19] Folic Acid 0.4 mg PO DAILY 10/18/18 [History Confirmed 07/30/19] Metformin HCl 500 mg PO BID 10/18/18 [History Confirmed 07/30/19] Vitamin B Complex [Super B-50 Complex] 1 each PO DAILY 10/18/18 [History Confirmed 07/30/19] glipiZIDE [Glipizide] 5 mg PO SEE INSTRUCTIONS 10/18/18 [History Confirmed 07/30] Erythromycin OPTH OINT* [Erythromycin 0.5% OPTH OINT*] 1 applic BOTH EYES BID PRN 07/30/19 [History Confirmed 07/30/19] Nystatin susp 16 oz 100,000 unit PO QID 07/30/19 [History Confirmed 07/30/19] Inpatient Medications: Albuterol (Ventolin Hfa Inhaler*) 1 puff INH Q4H PRN PRN Reason: SOB/WHEEZING Last Admin: 07/30/19 08:36 Dose: 1 puff Albuterol/Ipratropium (Duoneb (Albuterol 2.5 Mg/Ipratropium 0.5 Mg)) 1 neb INH Q4H PRN PRN Reason: SOB/WHEEZING Last Admin: 07/30/19 23:40 Dose: 1 neb Enoxaparin Sodium (Lovenox(*)) 40 mg SUBCUT Q24H [facility] Last Admin: 07/31/19 08:40 Dose: 40 mg Folic Acid (Folvite Tab*) 0.5 mg PO DAILY [facility] Last Admin: 07/31/19 08:43 Dose: 0.5 mg Heparin Sodium (Porcine) (Heparin Flush Port (Ivad)) 5 ml FLUSH DAILY [facility]; Protocol Last Admin: 07/31/19 08:41 Dose: 5 ml Insulin Glargine (Lantus(*)) 15 units SUBCUT Q24H [facility] Last Admin: 07/31/19 11:18 Dose: 15 units Insulin Human Lispro (Humalog*) 0 units SUBCUT ACHS [facility]; Protocol Last Admin: 07/31/19 12:32 Dose: 1 units Lorazepam (Ativan Tab(*)) 0.5 mg PO BID PRN PRN Reason: ANXIETY Last Admin: 07/31/19 12:44 Dose: 0.5 mg Methimazole (Tapazole Tab*) 15 mg PO DAILY [facility] Last Admin: 07/31/19 12:32 Dose: 15 mg Nystatin (Nystatin Suspension*) 100,000 units PO QID [facility] Last Admin: 07/31/19 12:33 Dose: 100,000 units Vitamin B Complex/Vitamin E (B Complex-50*) 1 tab PO DAILY [facility] Last Admin: 07/31/19 08:43 Dose: 1 tab Allergies/Intolerances: bupropion moxifloxacin shellfish strawberry omeprazole Social History: Lives alone. Family nearby, daughter is HCP. Lengthy tobacco history. Denies other drug/acohol use. Family History: Various malignancy, no diabetes Review of Systems: As above. No recent illnesses. No GI symptoms. No change in weight. 12 system review is otherwise negative. OBJECTIVE: Temp Pulse Resp BP Pulse Ox 97.4 F 65 18 142/67 91 07/31/19 11:15 07/31/19 11:15 07/31/19 11:15 07/31/19 11:15 07/31/19 11:15 General: alert, pleasant, oriented, no distress ENT: neck supple, no thyromegaly, no bruit is heard Chest: CTAB, no wheezing or crackles CV: RRR, no murmur Abdomen: soft, non-tender Extremities: no edema, distal pulses intact Skin: warm, dry, no rash Neuro: grossly intact motor/sensory in extremities Psych: restricted affect, pleasant Labs: Glucose Results 07/30/19 03:00 367 DRIP ON 07/30/19 04:00 273 07/30/19 05:00 221 07/30/19 06:00 202 07/30/19 07:00 176 Lantus 15 07/30/19 08:00 152 DRIP OFF 07/30/19 11:30 204 Humalog 2 07/30/19 16:30 276 Humalog 3 07/30/19 21:00 226 Humalog 2 07/31/19 07:30 252 Lantus 15 + Humalog 2 WBC 8.1 10^3/uL (3.5-10.8) 07/31/19 06:25 RBC 3.43 10^6 /uL (3.70-4.87) L 07/31/19 06:25 Hgb 11.7 g/dL (12.0-16.0) L 07/31/19 06:25 Hct 34 % (35-47) L 07/31/19 06:25 MCV 98 fL (80-97) H 07/31/19 06:25 MCH 34 pg (27-31) H 07/31/19 06:25 MCHC 35 g/dL (31-36) 07/31/19 06:25 RDW 14 % (10-15) 07/31/19 06:25 Plt Count 141 10^3/uL (150-450) L 07/31/19 06:25 MPV 7.8 fL (7.4-10.4) 07/31/19 06:25 Neut % (Auto) 76.3 % 07/31/19 06:25 Lymph % (Auto) 15.6 % 07/31/19 06:25 [place] % (Auto) 7.0 % 07/31/19 06:25 Eos % (Auto) 0.6 % 07/31/19 06:25 Baso % (Auto) 0.5 % 07/31/19 06:25 Absolute Neuts (auto) 6.2 10^3/ul (1.5-7.7) 07/31/19 06:25 Absolute Lymphs (auto) 1.3 10^3/ul (1.0-4.8) 07/31/19 06:25 Absolute Monos (auto) 0.6 10^3/ul (0-0.8) 07/31/19 06:25 Absolute Eos (auto) 0.0 10^3/ul (0-0.6) 07/31/19 06:25 Absolute Basos (auto) 0.0 10^3/ul (0-0.2) 07/31/19 06:25 Absolute Nucleated RBC 0.0 10^3/ul 07/31/19 06:25 Nucleated RBC % 0.0 07/31/19 06:25 VBG pH 7.13 (7.32-7.43) L 07/30/19 00:55 VBG pCO2 35 mmHg (41-51) L 07/30/19 00:55 VBG pO2 < 38.0 mmHg (35-45) 07/30/19 00:55 VBG HCO3 10.4 mmol/L (24-28) L 07/30/19 00:55 VBG O2 Saturation 40.4 % (70-80) L 07/30/19 00:55 VBG Base Excess -16.6 mmol/L (0.0-4.0) L 07/30/19 00:55 Sodium 140 mmol/L (135-145) 07/31/19 06:25 Potassium 4.2 mmol/L (3.5-5.0) 07/31/19 06:25 Chloride 114 mmol/L (101-111) H 07/31/19 06:25 Carbon Dioxide 22 mmol/L (22-32) 07/31/19 06:25 Anion Gap 4 mmol/L (2-11) 07/31/19 06:25 BUN 13 mg/dL (6-24) 07/31/19 06:25 Creatinine 0.98 mg/dL (0.51-0.95) H 07/31/19 06:25 Est GFR ( Amer) 68.7 (>60) 07/31/19 06:25 Est GFR (Non-Af Amer) 56.8 (>60) 07/31/19 06:25 BUN/Creatinine Ratio 13.3 (8-20) 07/31/19 06:25 Glucose 212 mg/dL (70-100) H 07/31/19 06:25 POC Glucose (mg/dL) 199 mg/dL (70-100) H 07/31/19 12:18 Glucose Meter Confirm 273 mg/dL (70-100) H 07/30/19 04:00 Hemoglobin A1c 8.2 % (4.0-5.6) H 07/30/19 06:33 Lactic Acid 2.4 mmol/L (0.5-2.0) H* 07/30/19 03:20 Calcium 7.8 mg/dL (8.6-10.3) L 07/31/19 06:25 Phosphorus 1.7 mg/dL (2.5-5.0) L 07/30/19 13:56 Magnesium 1.8 mg/dL (1.9-2.7) L 07/31/19 06:25 Total Bilirubin 0.60 mg/dL (0.2-1.0) 07/30/19 00:05 AST 16 U/L (13-39) 07/30/19 00:05 ALT 14 U/L (7-52) 07/30/19 00:05 Alkaline Phosphatase 167 U/L (34-104) H 07/30/19 00:05 Troponin I 0.01 ng/mL (<0.03) 07/30/19 06:33 Total Protein 7.9 g/dL (6.4-8.9) 07/30/19 00:05 Albumin 4.7 g/dL (3.2-5.2) 07/30/19 00:05 Globulin 3.2 g/dL (2-4) 07/30/19 00:05 Albumin/Globulin Ratio 1.5 (1-3) 07/30/19 00:05 TSH Cancelled 07/31/19 06:25 Free T4 Cancelled 07/31/19 06:25 Urine Color Straw 07/30/19 00:45 Urine Appearance Clear 07/30/19 00:45 Urine pH 5.0 (5-9) 07/30/19 00:45 Ur Specific [place] 1.024 (1.010-1.030) 07/30/19 00:45 Urine Protein Negative (Negative) 07/30/19 00:45 Urine Ketones 2+ (Negative) A 07/30/19 00:45 Urine Blood Negative (Negative) 07/30/19 00:45 Urine Nitrate Negative (Negative) 07/30/19 00:45 Urine Bilirubin Negative (Negative) 07/30/19 00:45 Urine Urobilinogen Negative (Negative) 07/30/19 00:45 Ur Leukocyte Esterase Negative (Negative) 07/30/19 00:45 Urine Glucose 3+(>=500 mg/dl) (Negative) A 07/30/19 00:45
--- NOTE | 2019-07-31 14:30 | PN ---
Subjective Date of Service: 07/31/19 Interval History: HOSPITALIST PROGRESS NOTE Patient seen and examined at bedside. Care reviewed and d/w Joan Bailey RN. She feels a little better today. Denies CP, palpitations, change on dyspnea. No N/V, tolerating diet well. Family History: Unchanged from Admission Social History: Unchanged from Admission Past Medical History: Unchanged from Admission Objective Active Medications: Albuterol (Ventolin Hfa Inhaler*) 1 puff INH Q4H PRN PRN Reason: SOB/WHEEZING Last Admin: 07/30/19 08:36 Dose: 1 puff Albuterol/Ipratropium (Duoneb (Albuterol 2.5 Mg/Ipratropium 0.5 Mg)) 1 neb INH Q4H PRN PRN Reason: SOB/WHEEZING Last Admin: 07/30/19 23:40 Dose: 1 neb Enoxaparin Sodium (Lovenox(*)) 40 mg SUBCUT Q24H [facility] Last Admin: 07/31/19 08:40 Dose: 40 mg Folic Acid (Folvite Tab*) 0.5 mg PO DAILY [facility] Last Admin: 07/31/19 08:43 Dose: 0.5 mg Heparin Sodium (Porcine) (Heparin Flush Port (Ivad)) 5 ml FLUSH DAILY [facility]; Protocol Last Admin: 07/31/19 08:41 Dose: 5 ml Insulin Glargine (Lantus(*)) 15 units SUBCUT Q24H [facility] Last Admin: 07/31/19 11:18 Dose: 15 units Insulin Human Lispro (Humalog*) 0 units SUBCUT ACHS [facility]; Protocol Last Admin: 07/31/19 12:32 Dose: 1 units Lorazepam (Ativan Tab(*)) 0.5 mg PO BID PRN PRN Reason: ANXIETY Last Admin: 07/31/19 12:44 Dose: 0.5 mg Methimazole (Tapazole Tab*) 15 mg PO DAILY [facility] Last Admin: 07/31/19 12:32 Dose: 15 mg Nystatin (Nystatin Suspension*) 100,000 units PO QID [facility] Last Admin: 07/31/19 12:33 Dose: 100,000 units Vitamin B Complex/Vitamin E (B Complex-50*) 1 tab PO DAILY [facility] Last Admin: 07/31/19 08:43 Dose: 1 tab Vital Signs - 8 hr 07/31/19 07/31/19 07/31/19 07:35 11:15 12:44 Temperature 97.2 F 97.4 F Pulse Rate 57 65 Respiratory 16 18 17 Rate Blood Pressure 113/62 142/67 (mmHg) O2 Sat by Pulse 94 91 Oximetry Oxygen Devices in Use Now: Nasal Cannula Appearance: Pleasant elderly lady sitting up in bed in NAD Eyes: No Scleral Icterus Ears/Nose/Mouth/Throat: Mucous Membranes Moist Neck: Trachea Midline Respiratory: Symmetrical Chest Expansion and Respiratory Effort, - - BS+ bilaterally with no added sounds Cardiovascular: RRR - Normal S1 and S2 Neurological: Alert and Oriented x 3, NL Muscle Strength and Tone Result Diagrams: 07/31/19 06:25 07/31/19 06:25 Microbiology and Other Data: Microbiology 07/30/19 09:52 Legionella Urinary Antigen - Final Urine Negative Legionella Antigen Streptococcus pneumoniae Ag Screen - Final Negative S. pneumo Antigen 07/30/19 03:20 Nasal Screen MRSA (PCR) - Final Nasal Mrsa Not Detected Assess/Plan/Problems-Billing Assessment: Mrs Villalta is a 64yo F with PMH of recurrent non smal cell lung cancer on Nivolumab, COPD, hyperthyroidism, steroid induced type 2 diabetes since 2018, who presented to ED with c/o weakness and lightheadedness, found to be in DKA. - Patient Problems (1) DKA (diabetic ketoacidosis) Comment: - Endocrinology input much appreciated - "While ketosis-prone T2DM remains a possibility in this case, the more likely scenario is acute, autoimmune T1DM caused by initiation of nivolumab immunotherapy on 07/17/19". - A1c is 8.2. - Increase Lantus to 16 units/daily, Lispro 4 units AC and sliding scale. - Check TSH, free T4, total T3, C-peptide, Diabetes Mellitus Type 1 Eval, Thyrotropin Receptor Antibody, cortisol, ACTH, FSH/LH, 21-Hydroxylase Ab (all ordered). (2) Lung cancer Comment: - Oncology consult appreciated. (3) Graves' disease Comment: - Continue Methimazole. - Check TFTs. (4) COPD (chronic obstructive pulmonary disease) Comment: - Continue bronchodilators. (5) Anxiety Comment: - Continue Lorazepam PRN. (6) DVT prophylaxis Comment: - Lovenox. (7) Full code status Status and Disposition: Inpatient.
[2019-07-31] MEDS ORDERED: Dextrose 50% Syringe 50 ML* 25 GM/50 ML SYRINGE IV PUSH PRN (15:29)
[2019-07-31] MEDS ORDERED: Magnesium Sulfate 2 GM IV* 2 GM/50 ML BAG IVPB ONE (16:23)
[2019-08-01 06:40] LABS: TSH (Thyroid Stimulating Horm) 0.36 mcIU/mL (0.34-5.60)
[2019-08-01 06:44] LABS: Free T4 0.99 ng/dL (0.61-1.12)
[2019-08-01 07:08] LABS: Follicle Stimulating Hormone 53.9 mIU/mL
[2019-08-01 07:09] LABS: Luteinizing Hormone 35.2 mIU/mL
[2019-08-01 07:40] LABS: Magnesium 1.3 mg/dL (1.9-2.7)
--- NOTE | 2019-08-01 07:42 | PN ---
Subjective Date of Service: 08/01/19 Interval History: HD 3 on 08/01 Transferred from ICU on 07/30 after IV insulin 64 F with PMH significant for recurrent NSCLC(on Nivolumab), Hyperthyroidism(on Methimazole), T2DM(2/2 steroid use), COPD and anxiety presented with lightheadedness, fatigue, polyuria and polydipsia and increased blood glucose. Found to be in DKA. treated in ICU with Insulin drip. Transferred to floor on OVernight: No acute overnight events Vitals: stable; although hypotensive at times. Patient seen and examined at bedside. patient states she has headaches. She denies cramps, spasms, nausea and vomiting. She has chronic cough. She smokes 3-6 cigarettes everyday; has cut back from 1 pack per day Denies chest pain, difficulty in breathing. Patient worried about her fluctuating blood glucose. Objective Active Medications: Albuterol (Ventolin Hfa Inhaler*) 1 puff INH Q4H PRN PRN Reason: SOB/WHEEZING Last Admin: 07/30/19 08:36 Dose: 1 puff Albuterol/Ipratropium (Duoneb (Albuterol 2.5 Mg/Ipratropium 0.5 Mg)) 1 neb INH Q4H PRN PRN Reason: SOB/WHEEZING Last Admin: 07/30/19 23:40 Dose: 1 neb Dextrose (D50w Syringe 50 Ml*) 12.5 gm IV PUSH .FOR FS < 60 - SS PRN PRN Reason: FS < 60 Enoxaparin Sodium (Lovenox(*)) 40 mg SUBCUT Q24H [facility] Last Admin: 07/31/19 08:40 Dose: 40 mg Folic Acid (Folvite Tab*) 0.5 mg PO DAILY [facility] Last Admin: 07/31/19 08:43 Dose: 0.5 mg Heparin Sodium (Porcine) (Heparin Flush Port (Ivad)) 5 ml FLUSH DAILY [facility]; Protocol Last Admin: 08/01/19 05:45 Dose: 5 ml Insulin Glargine (Lantus(*)) 16 units SUBCUT Q24H [facility] Insulin Human Lispro (Humalog*) 0 units SUBCUT ACHS [facility]; Protocol Last Admin: 07/31/19 21:10 Dose: Not Given Insulin Human Lispro (Humalog*) 4 units SUBCUT AC [facility] Last Admin: 07/31/19 17:51 Dose: 4 units Lorazepam (Ativan Tab(*)) 0.5 mg PO BID PRN PRN Reason: ANXIETY Last Admin: 07/31/19 21:09 Dose: 0.5 mg Methimazole (Tapazole Tab*) 15 mg PO DAILY [facility] Last Admin: 07/31/19 12:32 Dose: 15 mg Nystatin (Nystatin Suspension*) 100,000 units PO QID [facility] Last Admin: 07/31/19 21:09 Dose: 100,000 units Vitamin B Complex/Vitamin E (B Complex-50*) 1 tab PO DAILY [facility] Last Admin: 07/31/19 08:43 Dose: 1 tab Vital Signs - 8 hr 08/01/19 08/01/19 08/01/19 00:08 00:10 03:37 Temperature 98.2 F 97.7 F Pulse Rate 70 55 Respiratory 24 24 Rate Blood Pressure 73/37 108/64 90/56 (mmHg) O2 Sat by Pulse 96 96 Oximetry 08/01/19 08/01/19 03:49 06:54 Temperature Pulse Rate 70 Respiratory 18 Rate Blood Pressure 110/65 (mmHg) O2 Sat by Pulse Oximetry Oxygen Devices in Use Now: None Exam: Patient lying on a bed with no acute distress HEENT: Normocephalic and atraumatic Lungs: Good respiratory effort; No added sounds Heart: S1/S2 heard with no murmur Abdomen: soft, nondistended and nontender. Normal BS heard Extremities: No swelling Neuro: Alert, oriented and coperative Result Diagrams: 08/02/19 05:30 08/02/19 05:30 Microbiology and Other Data: Microbiology 07/30/19 09:52 Legionella Urinary Antigen - Final Urine Negative Legionella Antigen Streptococcus pneumoniae Ag Screen - Final Negative S. pneumo Antigen 07/30/19 03:20 Nasal Screen MRSA (PCR) - Final Nasal Mrsa Not Detected Assess/Plan/Problems-Billing Assessment: 64 F with PMH significant for recurrent NSCLC(on Nivolumab), Hyperthyroidism(on Methimazole), T2DM(2/2 steroid use), COPD and anxiety presented with lightheadedness, fatigue, polyuria and polydipsia and increased blood glucose. Found to be in DKA. treated in ICU with Insulin drip. Transferred to floor on - Patient Problems (1) DKA (diabetic ketoacidosis) Current Visit: Yes Status: Acute Code(s): E11.10 - TYPE 2 DIABETES MELLITUS WITH KETOACIDOSIS WITHOUT COMA SNOMED Code(s): 695035405 Comment: -Gaps closed. -received insulin drip in ICU -Now on insulin lantus and lispro (2) Diabetes Current Visit: Yes Status: Acute Code(s): E11.9 - TYPE 2 DIABETES MELLITUS WITHOUT COMPLICATIONS SNOMED Code(s): 03200528 Comment: -Steroid-induced during treatment for lung malignancy -concern if this is ketosis-prone T2DM or acute autoimmune T1DM; given her use of nivolumab - pending C-peptide and autoimmune panel. -HbA1c is 8.2; she was on metformin and glipizide at home -newly started on Insulin lantus and lispro. -She has fluctuating BG- will need to stabilize blood glucose with correct dose of insulin before discharge. -probable discharge tomorrow. -She has appt with Dr. Moe on 08/13 and hs been prescribed CGM by Dr. Moe -she can discharged on insulin lantus 16U and humalog with meals BG 151-200 -- 1 unit - BG 201-250 -- 2 units - BG 251-300 -- 3 units - BG 301-350 -- 4 units - BG 351-400 -- 5 units - BG >400 -- 6 units (3) Lung cancer Current Visit: Yes Status: Acute Code(s): C34.90 - MALIGNANT NEOPLASM OF UNSP PART OF UNSP BRONCHUS OR LUNG SNOMED Code(s): 561015838 Comment: -recurrent NSCLC(right side at present) -was switched from carboplatin and pemetrexed to Nivolumab- cycle I on 07/17/19- 4 week cycle -thought is that DKA could be from acute autoimmune DM / to nivolumab -appreciate Endo and oncology consult -She will continue chemotherapy as an outpatient- follows with Dr. Avitia (4) COPD (chronic obstructive pulmonary disease) Current Visit: Yes Status: Acute Code(s): J44.9 - CHRONIC OBSTRUCTIVE PULMONARY DISEASE, UNSPECIFIED SNOMED Code(s): 30040928 Comment: -She is chronic smoker; used to smoke 1 PPD before; has cutback down to 3-6 cigarettes per day. -She has tried nicotine patches in past and says it makes her feel dizzy. -Has tried acupuncture as well; frustated that nothing has helped her to quit smoking; even tried medication -COunselling done on slowly discontinuing it. -Continue home inhalers (5) Graves' disease Current Visit: Yes Status: Acute Code(s): E05.00 - THYROTOXICOSIS W DIFFUSE GOITER W/O THYROTOXIC CRISIS SNOMED Code(s): 229205732 Comment: - Continue Methimazole. - TSH-0.36 (6) Anxiety Current Visit: Yes Status: Acute Code(s): F41.9 - ANXIETY DISORDER, UNSPECIFIED SNOMED Code(s): 73403569 Comment: - Continue Lorazepam PRN. (7) DVT prophylaxis Current Visit: Yes Status: Acute Code(s): Z29.9 - ENCOUNTER FOR PROPHYLACTIC MEASURES, UNSPECIFIED SNOMED Code(s): 925400464 Comment: - Lovenox. (8) Full code status Current Visit: Yes Status: Acute Code(s): Z78.9 - OTHER SPECIFIED HEALTH STATUS SNOMED Code(s): 695950479 Status and Disposition: Inpatient. probable discharge tomorrow Attending: Jackeline Garcia Attestation Documenting Resident: Cristina Ayers Supervising Physician: Jackeline Garcia Attending/Supervising Physician Comment: Patient reports history of COPD and needing Spiriva, which her insurance stopped covering a couple years ago. Discussed restarting now with hope of getting her off supplemental oxygen. Will also discharge with this medication now that patient is on Medicare. Reinforced importance of complete smoking cessation. Attestation: This service has been performed in part by a resident under the direction of a teaching physician.I, Jackeline Garcia, performed the service, or was physically present during the critical, or kennedy portions of the service, furnished by the resident. I participated in the management of the patient.
[2019-08-01 07:43] LABS: Calcium 4.7 mg/dL (8.6-10.3); Potassium 2.5 mmol/L (3.5-5.0)
[2019-08-01 07:45] LABS: BUN/Creatinine Ratio 17.9 (8-20); EGFR Non-African American 164.4 (>60)
[2019-08-01] MEDS ORDERED: Potassium Chlor TAB* 20 MEQ TAB.ER PO ONE ×2 (07:46→11:00)
[2019-08-01] MEDS ORDERED: Magnesium Sulf 4 GM/100 ML IV* 4,000 MG/100 ML BAG IVPB ONE (08:15)
[2019-08-01] MEDS ORDERED: CALCIUM GLUCONATE 1GM/50ML NS 1 GM/50 ML BAG IV ONE (08:15)
[2019-08-01] MEDS: Insulin LISPRO* 1 UNITS UNIT SUBCUT SCH ×7 (08:34→21:04)
[2019-08-01] MEDS ORDERED: Acetaminophen TAB* 325 MG PO PRN (08:49)
[2019-08-01 08:57] LABS: Albumin 3.3 g/dL (3.2-5.2); Calcium 8.3 mg/dL (8.6-10.3); Potassium 3.7 mmol/L (3.5-5.0); Total Bilirubin 0.5 mg/dL (0.2-1.0)
[2019-08-01 09:03] LABS: Albumin/Globulin Ratio 1.5 (1-3); BUN/Creatinine Ratio 13.6 (8-20); EGFR African American 77.8 (>60); EGFR Non-African American 64.3 (>60); Globulin 2.2 g/dL (2-4); Total Protein 5.5 g/dL (6.4-8.9)
[2019-08-01] MEDS: Enoxaparin(*) 40 MG/0.4 ML SYR SUBCUT SCH (10:00)
[2019-08-01] MEDS: Insulin GLARGINE(*) 1 UNITS UNIT SUBCUT SCH (10:02)
[2019-08-01] MEDS: Nystatin SUSPENSION* 100000 UNITS/ML 5 ML UDC PO SCH ×4 (10:02→20:54)
[2019-08-01] MEDS: Vitamin B Complex TAB PO SCH (10:03)
[2019-08-01] MEDS: Methimazole TAB* 5 MG PO SCH (10:03)
[2019-08-01] MEDS: Folic Acid TAB* 1 MG PO SCH (10:04)
[2019-08-01] MEDS: LORazepam TAB(*) 0.5 MG PO PRN ×2 (16:52→20:52)
[2019-08-01] MEDS: SPIRIVA Respimat* (tiotropium) 2.5 mcg/inh Inhaler INH SCH (22:00)
[2019-08-02 05:57] LABS: Hematocrit 38 % (35-47); Hemoglobin 12.8 g/dL (12.0-16.0); Mean Corpuscular HGB Conc 34 g/dL (31-36); Mean Corpuscular Hemoglobin 34 pg (27-31); Mean Corpuscular Volume 99 fL (80-97); Mean Platelet Volume 7.9 fL (7.4-10.4); Platelet Count 159 10^3/uL (150-450); Red Blood Count 3.81 10^6 /uL (3.70-4.87); Red Cell Distribution Width 14 % (10-15); White Blood Count 5.8 10^3/uL (3.5-10.8)
[2019-08-02 06:07] LABS: Calcium 8.7 mg/dL (8.6-10.3); Potassium 4.2 mmol/L (3.5-5.0)
[2019-08-02 06:12] LABS: BUN/Creatinine Ratio 17.9 (8-20); EGFR African American 82.1 (>60); EGFR Non-African American 67.8 (>60)
[2019-08-02] MEDS: Nystatin SUSPENSION* 100000 UNITS/ML 5 ML UDC PO SCH ×4 (08:27→21:57)
[2019-08-02] MEDS: Enoxaparin(*) 40 MG/0.4 ML SYR SUBCUT SCH (08:34)
[2019-08-02] MEDS: Vitamin B Complex TAB PO SCH (08:38)
[2019-08-02] MEDS: Folic Acid TAB* 1 MG PO SCH (08:40)
[2019-08-02] MEDS: Methimazole TAB* 5 MG PO SCH (08:41)
[2019-08-02] MEDS: Insulin LISPRO* 1 UNITS UNIT SUBCUT SCH ×7 (08:45→21:56)
[2019-08-02] MEDS: Insulin GLARGINE(*) 1 UNITS UNIT SUBCUT SCH (08:50)
[2019-08-02] MEDS: SPIRIVA Respimat* (tiotropium) 2.5 mcg/inh Inhaler INH SCH (09:49)
[2019-08-02] MEDS: LORazepam TAB(*) 0.5 MG PO PRN ×2 (10:15→17:56)
[2019-08-02] MEDS ORDERED: Nicotine Lozenge* mini 2 MG LOZNG.MINI MT PRN (15:12)
--- NOTE | 2019-08-02 15:20 | PN ---
Subjective Date of Service: 08/02/19 Interval History: No acute events overnight. Titrated off supplemental O2 after starting Spiriva. Patient denies CP, SOB, dysuria, light headedness. Only reports anxiety about medication management now that she is newly on insulin. Reports that she was seeking assisted living before and would feel safer to be discharged to that situation. Strategizing ways to quit smoking. States she keeps having cravings, but also that she rolls her own cigarettes and doesn't use much tobacco. Reports " passing out" with nicotine gum 4mg. Willing to try lozenge at 2mg, especially educated that she may spit it out. Objective Active Medications: Acetaminophen (Tylenol Tab*) 650 mg PO Q6H PRN PRN Reason: PAIN - MILD Albuterol (Ventolin Hfa Inhaler*) 1 puff INH Q4H PRN PRN Reason: SOB/WHEEZING Last Admin: 07/30/19 08:36 Dose: 1 puff Dextrose (D50w Syringe 50 Ml*) 12.5 gm IV PUSH .FOR FS < 60 - SS PRN PRN Reason: FS < 60 Enoxaparin Sodium (Lovenox(*)) 40 mg SUBCUT Q24H [facility] Last Admin: 08/02/19 08:34 Dose: Not Given Folic Acid (Folvite Tab*) 0.5 mg PO DAILY [facility] Last Admin: 08/02/19 08:40 Dose: 0.5 mg Heparin Sodium (Porcine) (Heparin Flush Port ([place])) 5 ml FLUSH DAILY [facility]; Protocol Last Admin: 08/02/19 10:08 Dose: 5 ml Insulin Glargine (Lantus(*)) 16 units SUBCUT Q24H [facility] Last Admin: 08/02/19 08:50 Dose: 16 units Insulin Human Lispro (Humalog*) 0 units SUBCUT ACHS [facility]; Protocol Last Admin: 08/02/19 12:37 Dose: 2 units Insulin Human Lispro (Humalog*) 4 units SUBCUT AC [facility] Last Admin: 08/02/19 12:38 Dose: 4 units Lorazepam (Ativan Tab(*)) 0.5 mg PO BID PRN PRN Reason: ANXIETY Last Admin: 08/02/19 10:15 Dose: 0.5 mg Methimazole (Tapazole Tab*) 15 mg PO DAILY [facility] Last Admin: 08/02/19 08:41 Dose: 15 mg Nicotine Polacrilex (Nicotine Lozenge Mini) 2 mg MT Q2H PRN PRN Reason: CRAVING Nystatin (Nystatin Suspension*) 100,000 units PO QID [facility] Last Admin: 08/02/19 12:39 Dose: 100,000 units Tiotropium [place] (Spiriva Respimat 2.5 Mcg) 2 puff INH DAILY [facility] Last Admin: 08/02/19 09:49 Dose: 2 puff Vitamin B Complex/Vitamin E (B Complex-50*) 1 tab PO DAILY [facility] Last Admin: 08/02/19 08:38 Dose: 1 tab Vital Signs - 8 hr 08/02/19 08/02/19 08/02/19 07:40 08:05 08:30 Temperature 98.3 F Pulse Rate 71 Respiratory 20 20 Rate Blood Pressure 93/58 97/57 (mmHg) O2 Sat by Pulse 96 Oximetry 08/02/19 08/02/19 08/02/19 09:50 10:15 11:28 Temperature 98.1 F Pulse Rate 60 79 Respiratory 15 20 22 Rate Blood Pressure 144/65 (mmHg) O2 Sat by Pulse 96 93 Oximetry Oxygen Devices in Use Now: None Appearance: well appearing, alert and interactive, pleasant Eyes: No Scleral Icterus Ears/Nose/Mouth/Throat: Clear Oropharnyx, Mucous Membranes Moist Neck: NL Appearance and Movements; NL JVP, Trachea Midline Respiratory: Symmetrical Chest Expansion and Respiratory Effort, Clear to Auscultation Cardiovascular: NL Sounds; No Murmurs; No JVD, RRR Abdominal: NL Sounds; No Tenderness; No Distention, No Hepatosplenomegaly Extremities: No Edema Skin: No Rash or Ulcers Neurological: Alert and Oriented x 3 Result Diagrams: 08/02/19 05:30 08/02/19 05:30 Microbiology and Other Data: Microbiology 07/30/19 09:52 Legionella Urinary Antigen - Final Urine Negative Legionella Antigen Streptococcus pneumoniae Ag Screen - Final Negative S. pneumo Antigen 07/30/19 03:20 Nasal Screen MRSA (PCR) - Final Nasal Mrsa Not Detected Assess/Plan/Problems-Billing Assessment: 64W with recurrent NSCLC (on Nivolumab), Hyperthyroidism (on Methimazole), T2DM (2/2 steroid use), COPD with active smoking, and anxiety, presents with lightheadedness, fatigue, polyuria and polydipsia and increased blood glucose. Found to be in DKA, likely induced by immunotherapy. s/p ICU with Insulin drip, transferred to floor on 07/30. - Patient Problems (1) DKA (diabetic ketoacidosis) Comment: Resolved after insulin drip in ICU. - appreciate Dr. 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 - pending C-peptide and autoimmune panel. - holding home metformin and glipizide - newly on insulin glargine and lispro, per Endo - appt with Dr. Moe on 08/13; prescribed CGM - she can discharged on insulin lantus 16U and humalog with meals BG 151-200 -- 1 unit - BG 201-250 -- 2 units - BG 251-300 -- 3 units - BG 301-350 -- 4 units - BG 351-400 -- 5 units - BG >400 -- 6 units (3) Lung cancer Comment: -recurrent NSCLC(right side at present) -was switched from carboplatin and pemetrexed to Nivolumab- cycle I on 07/17/19- 4 week cycle -thought is that DKA could be from acute autoimmune DM 2/2 to nivolumab -appreciate Endo and oncology consult -She will continue chemotherapy as an outpatient- follows with Dr. Avitia (4) COPD (chronic obstructive pulmonary disease) Comment: Used to smoke 1 PPD before; has cutback down to 3-6 cigarettes per day. Reports dizziness with NRT (patches and gum). Has tried acupuncture as well ; frustated that nothing has helped her to quit smoking; even tried medication. - counselling done on smoking cessation - cont Spiriva with albuterol prn - pt amenable to try NRT lozenge 2mg prn (5) Graves' disease Comment: - Continue Methimazole. - TSH-0.36 (6) Anxiety Comment: - Continue Lorazepam PRN. (7) DVT prophylaxis Comment: - Lovenox. (8) Full code status Current Visit: Yes Status: Acute Code(s): Z78.9 - OTHER SPECIFIED HEALTH STATUS SNOMED Code(s): 916447451 Status and Disposition: Inpatient. probable discharge tomorrow
[2019-08-03] MEDS: LORazepam TAB(*) 0.5 MG PO PRN (05:07)
[2019-08-03] MEDS: SPIRIVA Respimat* (tiotropium) 2.5 mcg/inh Inhaler INH SCH (07:32)
[2019-08-03] MEDS: Insulin LISPRO* 1 UNITS UNIT SUBCUT SCH ×4 (07:46→13:24)
[2019-08-03 07:51] VITALS: BP 92/74
[2019-08-03] MEDS: Methimazole TAB* 5 MG PO SCH (09:48)
[2019-08-03] MEDS: Vitamin B Complex TAB PO SCH (09:49)
[2019-08-03] MEDS: Folic Acid TAB* 1 MG PO SCH (09:49)
[2019-08-03] MEDS: Nystatin SUSPENSION* 100000 UNITS/ML 5 ML UDC PO SCH ×2 (09:50→13:21)
[2019-08-03] MEDS: Enoxaparin(*) 40 MG/0.4 ML SYR SUBCUT SCH (09:51)
[2019-08-03] MEDS: Insulin GLARGINE(*) 1 UNITS UNIT SUBCUT SCH (09:55)
[2019-08-03 12:53] LABS: Thyrotropin Receptor Antibody <1.00 IU/L
--- NOTE | 2019-08-03 23:17 | DS ---
CC: Dr. Yassine Shirley; Dr. Marco Moe; Dr. Andrew Bess. * DISCHARGE SUMMARY: DATE OF ADMISSION: 07/30/19 DATE OF DISCHARGE: 08/03/19 PRIMARY CARE PHYSICIAN: Dr. Yassine Shirley. PRIMARY DIAGNOSES: 1. Diabetes ketoacidosis. 2. Chronic obstructive pulmonary disease. SECONDARY DIAGNOSES: 1. Non-small lung cancer, on immunotherapy. 2. Diabetes type 2. 3. Hyperthyroidism. 4. Gastroesophageal reflux disease. 5. Anxiety and depression. CONSULTS: Dr. Marco Moe of Endocrinology and Dr. Andrew Bess of Oncology. DISCHARGE MEDICATIONS: 1. Insulin glargine 16 units daily. 2. Insulin Humalog 4 units plus sliding scale t.i.d. 3. Tiotropium 1 inhalation daily. 4. Methimazole 50 mg daily. 5. Folic acid 1 tablet daily. 6. Lorazepam 0.5 to 1 mg t.i.d. p.r.n. 7. Albuterol 1 puff every 6 hours as needed for shortness of breath. HISTORY OF PRESENT ILLNESS: Ms. Hernandez is a 64-year-old woman with a history of unresectable stage IIB non-small cell lung cancer diagnosed in 2006; history of type 2 diabetes secondary to steroid use for malignancy; COPD with active smoking; depression; anxiety; hyperthyroidism, who presented to the emergency room after noticing hyperglycemia. She states she has been feeling sluggish all evening when she went shopping and experienced lightheadedness. She also noticed increased urination and dry mouth with increased thirst. When she reached home, she noted her sugar was very elevated, her meter read greater than 600. She stated she forgot to take her home diabetes medications including metformin and glipizide. Her daughter reports that she typically has poor medication adherence. The patient denies chest pain, vomiting. Reports mild shortness of breath with nausea. HOSPITAL COURSE: In the emergency room, the patient was noted to have a white blood cell count of 13.7 with ABG showing pH of 7.13 and anion gap 23. Her lactic acid was 3.9 and her urinalysis was notable for ketones, but otherwise clear. She was started on an insulin drip with significant IV fluid repletion and admitted to the ICU. While in the ICU, her anion gap closed and her blood glucose decreased closer to normal range. Oncology and Endocrinology were consulted given atypical presentation for DKA which was thought possibly related to her immunotherapy. Oncology noted that nivolumab which the patient was recently on could cause islet cell dysfunction, possibly causing currently seen presentation. They recommended to continue insulin, methimazole, and follow the patient up as an outpatient. Dr. Marco Moe of Endocrinology also saw and evaluated the patient and recommended autoimmune workup with various hormone levels and to initiate the patient on a particular sliding scale when she was titrated off of her insulin drip. Payton Solano of Outpatient Diabetes Coordination also met with the patient to assist in medication management and coordination. The patient was also given a prescription for a continuous glucose monitor. The patient was given extensive education regarding use of her glucose meter, continuous glucose monitor, and how to dose her insulin. She is recommended to continue on insulin as an outpatient with that of her home oral diabetic agents. Of note, the patient reported occasional shortness of breath and intermittently used oxygen. She reports that she continues to roll her own cigarettes and smokes, and that she previously was on Spiriva but it was not covered by her insurance when she had Medicaid, so she has not been on inhalers for COPD. The patient now has Medicare and she was again initiated on Spiriva, which significantly improved her symptoms and she was able to be titrated to room air. The patient refused to use nicotine replacement therapy and mentioned that she likely will continue smoking despite her extensive conversation with care providers. On day of discharge, 10-point review of systems was performed and the patient reports resolution of lightheadedness, fatigue, polyuria, polydipsia. She denies pain. She reports mild anxiety about new insulin dosing, but feels confident that she can follow the instructions and contact her outpatient diabetes providers with further questions. PHYSICAL EXAMINATION: Afebrile, heart rate 69, blood pressure 92/74, respiratory rate 14, oxygen saturation 93% on room air. In general, she is a well-appearing woman in no acute distress. She is alert and interactive, eating her food. HEENT: Moist mucous membranes. OP clear. Neck: No JVD. Lungs: Clear to auscultation bilaterally. Heart: Regular rate and rhythm; no murmurs, gallops, rubs. Abdomen: Soft, nontender, and nondistended. No organomegaly. Extremities: Warm and well- perfused without evidence of edema. Neuro: A and O x3. No focal deficits. PERTINENT DIAGNOSTIC STUDIES: CBC notable for leukocytosis which resolved. Hemoglobin within normal limits. BMP with creatinine 0.84. B12 1060. TSH 0.36 with free T4 within normal limits. Presenting blood gas with pH 7.13, pCO2 35. Type 1 diabetes antibodies pending at the time of discharge. Chest x-ray with right and middle lower lobe infiltrates and small bilateral pleural effusion, some of this density appears present on the prior chest x-ray and may represent a tumor in this patient. DISCHARGE PLAN: The patient will be discharged to follow up with her primary care physician as well as Dr. Moe of Endocrinology. She was given a referral for [facility] for help with her home medication regimen. Her new home medications are notable for the addition of long and short-acting insulin with discontinuation of her home oral diabetes medications. She was also initiated on Spiriva this admission which is the medication she previously took for COPD. She was encouraged to consider working with her outpatient providers to pursue smoking cessation efforts. DIET: Healthy diet, low in carbohydrates and sugar. ACTIVITY: As tolerated. DISPOSITION: Home. CONDITION: Good. TIME SPENT: Approximately 60 minutes was spent on the discharge of this patient , more than half of which was spent with care coordination at bedside for interview and exam. [id number]/[facility] #: [id number] MARTINEZ
== END 2019-08-03 14:45 | disposition home health service (06) | DRG 637 ==
LOC: ED 23:56 → ICU 07-30 02:13 → MED 07-30 14:27
PROVIDERS: ADMIT Internal Medicine; ATTEND Internal Medicine
DX: E11.10 Type 2 diabetes mellitus with ketoacidosis without coma (principal); J96.01 Acute respiratory failure with hypoxia; N17.9 Acute kidney failure, unspecified; E87.2 Acidosis; J90 Pleural effusion, not elsewhere classified; C34.90 Malignant neoplasm of unspecified part of unspecified bronchus or lung; J44.9 Chronic obstructive pulmonary disease, unspecified; F41.8 Other specified anxiety disorders; K21.9 Gastro-esophageal reflux disease without esophagitis; E87.5 Hyperkalemia; E05.00 Thyrotoxicosis with diffuse goiter without thyrotoxic crisis or storm; Z66 Do not resuscitate; T38.0X5A Adverse effect of glucocorticoids and synthetic analogues, initial encounter; D64.9 Anemia, unspecified; E11.9 Type 2 diabetes mellitus without complications; E86.0 Dehydration; F17.210 Nicotine dependence, cigarettes, uncomplicated; F32.9 Major depressive disorder, single episode, unspecified; Z92.21 Personal history of antineoplastic chemotherapy; Z85.9 Personal history of malignant neoplasm, unspecified; Z79.84 Long term (current) use of oral hypoglycemic drugs; Z79.51 Long term (current) use of inhaled steroids; Z79.899 Other long term (current) drug therapy; Z88.1 Allergy status to other antibiotic agents; Z91.013 Allergy to seafood; Z88.8 Allergy status to other drugs, medicaments and biological substances; Z91.018 Allergy to other foods; Z80.0 Family history of malignant neoplasm of digestive organs; Z80.8 Family history of malignant neoplasm of other organs or systems
CPT/HCPCS: 36415; 71045; 80048; 80053; 81003; 82024; 82533; 82607; 82803; 82947; 83001; 83002; 83036; 83516; 83520; 83605; 83735; 84100; 84439; 84443; 84479; 84484; 84681; 85025; 85027; 86337; 86341; 87641; 87899; 93005; 94640; 99223; 99285; A9270-GY; J0610; J1642; J1644; J1650; J3475; J3535